=== PATIENT | male | born 1965 | race Caucasian/White ===

== ENCOUNTER 2019-12-07 10:54 | Inpatient (IN) | payer OTHER ==
[~2019-12-07] VITALS: Ht 188 cm; Wt 103.0 kg
[~2019-12-07 10:54] MED LIST: ESOM20CA PO; PAR20T PO
[2019-12-07] MEDS ORDERED: HEPARIN SODIUM (PORCINE) 5000 UNITS/ML 1ML VIAL IV ONE (15:00)
[2019-12-07 15:06] LABS: Basophils # (auto) 0.1 10 ^3/uL (0-0.2); Eosinophils # (auto) 0.9 10 ^3/uL (0-0.8); Lymphocytes # (auto) 2.8 10 ^3/uL (0.4-5.4); Mean Corpuscular Hemoglobin 34.2 pg (28.0-32.0); Nucleated Red Blood Cells % 0.1 %; White Blood Cell 9.6 10^3/uL (4.4-10.8)
[2019-12-07 15:08] LABS: Basophils % (auto) 0.9 % (0.0-2.0); Hematocrit 43.4 % (41.0-53.0); Hemoglobin 14.8 g/dL (13.5-17.5); Lymphocytes % (auto) 29.3 % (10.0-50.0); Mean Corpuscular Volume 100.5 fL (80.0-100.0); Monocytes # (auto) 0.9 10 ^3/uL (0-1.3); Neutrophils % (auto) 51.8 % (37.0-80.0); Platelet Count (auto) 241 10^3/uL (140-450); Red Blood Cells 4.32 10^6/uL (4.5-5.90); Red Cell Distribution Width 13.2 % (11.8-14.3)
[2019-12-07 15:22] LABS: INR 1.06 (0.9-1.15); Partial Thromboplastin Time 30.5 sec (23.64-32.05)
[2019-12-07 15:27] LABS: Albumin 4.1 g/dL (3.4-5.0); BUN/Creatinine Ratio 11.8; Calcium 8.9 mg/dL (8.5-10.1); Potassium 3.8 mmol/L (3.5-5.1)
[2019-12-07 15:29] LABS: Bilirubin, Total 0.3 mg/dL (0.2-1.0)
[2019-12-07] MEDS ORDERED: MORPHINE SULF INJ 2 MG/ML SYRINGE 1ML IV PRN (15:30)
[2019-12-07] MEDS ORDERED: NITROGLYCERIN 0.4 MG SL TAB SL PRN ×2 (15:30→16:00)
[2019-12-07] MEDS ORDERED: HEPARIN IN NS 1000Units/500mL 0 ML ONE (15:41)
[2019-12-07] MEDS ORDERED: IODIXANOL 320MG/ML 100ML BTL IV ONE ×2 (15:41→16:22)
[2019-12-07] MEDS ORDERED: LIDOCAINE 2%HCL (LOCAL ANESTH.) INJ 20ML MDV ONE (15:41)
[2019-12-07] MEDS ORDERED: ANGIOMAX 250 MG VIAL IV ONE ×2 (15:46→16:50)
[2019-12-07] MEDS ORDERED: SODIUM CHL 0.9% 50 ML ONE ×2 (15:46→16:50)
[2019-12-07] MEDS ORDERED: MIDAZOLAM HCL 1MG/1ML-2 ML VIAL ONE ×2 (15:46→16:25)
[2019-12-07] MEDS ORDERED: fentaNYL CITRATE 100 MCG/2 ML VL ONE ×2 (15:46→16:25)
[2019-12-07] MEDS ORDERED: diphenhdrAMINE HCL 50 MG/1 ML VL ONE (15:46)
[2019-12-07] MEDS ORDERED: LORazepam 0.5 MG TAB PO PRN (16:00)
[2019-12-07] MEDS ORDERED: DEXTROSE (50%) 50ML SYRG IV PRN (16:00)
[2019-12-07] MEDS ORDERED: HYDROcodone-ACET 5/325MG TAB PO PRN (16:00)
[2019-12-07] MEDS ORDERED: ONDANSETRON HCL 4 MG/2 ML VIAL IV PRN (16:00)
[2019-12-07] MEDS ORDERED: CLOPIDOGREL BISULFATE 75 MG TAB PO ONE (17:30)
[2019-12-07] MEDS: ACCU-CHEK COMFORT CURVE STRIP VI SCH ×2 (17:39→22:52)
[2019-12-07] MEDS: InsuLIN REG 1unit/0.01ml Soln (100units/ml) SC SCH ×2 (17:39→22:00)
--- NOTE | 2019-12-07 17:51 | NUR ---
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 Pt is a/ox4 with no s/s of distress or SOB. Pt is to lay flat until 1845, pt made aware. Both legs are warm to touch, good blood flow noted and pedal pulses are strong bilaterally. Safety measures maintained with call light within reach, bed in lowest position and side rails up. Will continue to monitor.
[2019-12-07 18:07] VITALS: BP 145/76
[2019-12-07] MEDS ORDERED: CLOP75TA28 PO (18:18)
[2019-12-07] MEDS ORDERED: GABA100C9 PO (18:18)
[2019-12-07] MEDS: SODIUM CHLORIDE 0.9% 1,000 ML IV SCH (18:20)
--- NOTE | 2019-12-07 18:31 | NUR ---
MRSA NARES SENT TO LAB
--- NOTE | 2019-12-07 18:43 | NUR ---
Pt Able to Sit up in Bed Pt able to sit up in bed. Site to L groin is asymptomatic. Blood flow to extremity is noted, pedal pulses strong bilaterally.
--- NOTE | 2019-12-07 19:30 | NUR ---
Opening Shift Note Assumed care of patient, awake and alert. No S/S of distress/SOB or pain. Insructed on POC and to callfor assist PRN, will continue to monitor for changes Q1hr and PRN. Fall and safety precautions in place. Call light within reach.
[2019-12-07 22:00] VITALS: BP 139/75
[2019-12-07] MEDS ORDERED: ATORVASTATIN 20 MG TAB PO SCH (22:00)
[2019-12-07] MEDS: METOPROLOL TARTRATE 25 MG TAB PO SCH (22:39)
--- NOTE | 2019-12-07 23:05 | NUR ---
URINE Urine sample collected per MD order and sent to lab via bullet.
[2019-12-07 23:24] LABS: Urine Bacteria NONE SEEN /hpf (None Seen); Urine Blood TRACE /uL (Negative); Urine Mucus FEW (None Seen); Urine Specific Gravity 1.016 (1.001-1.035); Urine WBC 1 /hpf (0 - 3)
[2019-12-08 05:00] VITALS: BP 155/77
[2019-12-08] MEDS: SODIUM CHLORIDE 0.9% 1,000 ML IV SCH (05:30)
[2019-12-08] MEDS: InsuLIN REG 1unit/0.01ml Soln (100units/ml) SC SCH ×2 (05:49→11:22)
[2019-12-08] MEDS: ACCU-CHEK COMFORT CURVE STRIP VI SCH ×2 (05:49→11:22)
[2019-12-08 05:54] LABS: Basophils # (auto) 0.1 10 ^3/uL (0-0.2); Basophils % (auto) 0.7 % (0.0-2.0); Eosinophils # (auto) 0.7 10 ^3/uL (0-0.8); Eosinophils % (auto) 8.3 % (0.0-7.0); Hematocrit 41.1 % (41.0-53.0); Lymphocytes # (auto) 1.8 10 ^3/uL (0.4-5.4); Lymphocytes % (auto) 20.7 % (10.0-50.0); Mean Corpuscular Hemoglobin 34.1 pg (28.0-32.0); Mean Corpuscular Volume 100.4 fL (80.0-100.0); Monocytes # (auto) 0.8 10 ^3/uL (0-1.3); Monocytes % (auto) 9.4 % (0.0-12.0); Neutrophils # (auto) 5.3 10 ^3/uL (1.6-8.6); Neutrophils % (auto) 60.9 % (37.0-80.0); Platelet Count (auto) 224 10^3/uL (140-450); Red Cell Distribution Width 13.6 % (11.8-14.3); White Blood Cell 8.8 10^3/uL (4.4-10.8)
[2019-12-08 06:11] LABS: Potassium 3.7 mmol/L (3.5-5.1)
[2019-12-08 06:17] LABS: Ferritin 56.6 ng/mL (10-322); Folate (Folic Acid) > 24.00 ng/mL (5.38-24)
[2019-12-08 06:19] LABS: Albumin 3.6 g/dL (3.4-5.0); BUN/Creatinine Ratio 10.7; Bilirubin, Total 0.6 mg/dL (0.2-1.0); Calcium 8.7 mg/dL (8.5-10.1); Magnesium 1.8 mg/dL (1.6-2.6); Phosphorus 3.4 mg/dL (2.5-4.90); Total Protein 7.1 g/dL (6.4-8.2)
[2019-12-08] MEDS ORDERED: LEVOTHYROXINE SODIUM 50 MCG TAB PO SCH (07:00)
--- NOTE | 2019-12-08 07:21 | NUR ---
Opening Note Assumed pt care from NOC RN. Pt is a/ox4 with no s/s of distress or SOB. Pt is currently sitting upright in bed with no complaints at this time. Discussed POC with pt; pt verbalized understanding. Both extremities have good blood flow, pedal pulses are strong. Safety measures maintained with call light within reach, bed in lowest position and side rails up. Will continue to monitor.
[2019-12-08 08:09] VITALS: BP 137/71
[2019-12-08] MEDS: METOPROLOL TARTRATE 25 MG TAB PO SCH (09:07)
[2019-12-08] MEDS ORDERED: ENOXAPARIN SOD 40 MG/0.4 ML SYRINGE SC SCH (10:00)
[2019-12-08] MEDS ORDERED: ASPirin 81 mg TAB PO SCH (10:00)
[2019-12-08] MEDS ORDERED: DOCUSATE SOD 100 MG CAP PO SCH (10:00)
[2019-12-08] MEDS ORDERED: CLOPIDOGREL BISULFATE 75 MG TAB PO SCH (10:00)
[2019-12-08 10:10] LABS: Amphetamine Screen, Urine NEGATIVE (NEGATIVE); Barbiturate Scree,Urine NEGATIVE (NEGATIVE); Benzodiazephine Screen, Urine POSITIVE (NEGATIVE); Cannabinoid Screen, Urine NEGATIVE (NEGATIVE); Cocaine Screen, Urine NEGATIVE (NEGATIVE); Opiate Scree,Urine NEGATIVE (NEGATIVE); Phencyclidine Screen, Urine NEGATIVE (NEGATIVE)
--- NOTE | 2019-12-08 11:50 | NUR ---
Dr Paula Wetzel Called Plans to d/c pt home today. Will send prescription to pt's pharmacy, requests pt follow up with Dr Ceballos after d/c. Will implement and await orders. Will continue to monitor.
[2019-12-08] MEDS ORDERED: CLOP75TA28 PO (11:51)
[2019-12-08] MEDS ORDERED: ASPI81CH43 PO (11:51)
--- NOTE | 2019-12-08 12:17 | NUR ---
Faxed Appointment Information Faxed H&P as well as D/C summary to [facility] at [phone] for f/u appointment.
[2019-12-08 12:18] VITALS: BP 125/58
--- NOTE | 2019-12-08 12:42 | NUR ---
IVs and Tele 29 D/C'ed IVs to pt's R and L AC removed. Catheters were removed fully intact. Sites are asymptomatic. Pressure was applied to each site for 3 minutes with gauze and then wrapped in coban. Pt instructed to keep dressings on for 30 minutes; pt verbalized understanding. Tele 29 removed and sent back to ICU Tele staff made aware. Sent back via [facility] system.
--- NOTE | 2019-12-08 12:48 | NUR ---
Pt D/C'ed off Unit Pt ambulated off unit to main lobby. Pt is a/ox4 with no s/s of distress or SOB. Pt provided all education material, follow up appointment information, and prescription information. All questions were answered and pt took all belongings home. IVS and pt's tele box were d/c'ed prior to d/c.
[2019-12-09 07:06] LABS: RPR Non Reactive (Non Reactive)
== END 2019-12-08 12:47 | disposition home health service (06) | DRG 271 ==
LOC: ER 10:54 → TELE-CENTR 10:55
PROVIDERS: ADMIT Nurse Practitioner Acute Care; ATTEND Internal Medicine
PROC: B41G1ZZ Fluoroscopy of Left Lower Extremity Arteries using Low Osmolar Contrast (ICD-10-PCS; principal; 2019-12-07)
PROC: 04CK3ZZ Extirpation of Matter from Right Femoral Artery, Percutaneous Approach (ICD-10-PCS; 2019-12-07)
PROC: B41F1ZZ Fluoroscopy of Right Lower Extremity Arteries using Low Osmolar Contrast (ICD-10-PCS; 2019-12-07)
PROC: 047K3ZZ Dilation of Right Femoral Artery, Percutaneous Approach (ICD-10-PCS; 2019-12-07)
DX: T82.856A Stenosis of peripheral vascular stent, initial encounter (principal); T82.528A Displacement of other cardiac and vascular devices and implants, initial encounter; I70.291 Other atherosclerosis of native arteries of extremities, right leg; E11.51 Type 2 diabetes mellitus with diabetic peripheral angiopathy without gangrene; I99.8 Other disorder of circulatory system; F17.210 Nicotine dependence, cigarettes, uncomplicated; F32.9 Major depressive disorder, single episode, unspecified; F10.10 Alcohol abuse, uncomplicated; E03.9 Hypothyroidism, unspecified; Y90.9 Presence of alcohol in blood, level not specified; D75.89 Other specified diseases of blood and blood-forming organs; I77.1 Stricture of artery; F41.9 Anxiety disorder, unspecified; D72.1 Eosinophilia; I10 Essential (primary) hypertension; E66.9 Obesity, unspecified; Z95.820 Peripheral vascular angioplasty status with implants and grafts; Z88.1 Allergy status to other antibiotic agents; Y83.8 Other surgical procedures as the cause of abnormal reaction of the patient, or of later complication, without mention of misadventure at the time of the procedure; Y92.098 Other place in other non-institutional residence as the place of occurrence of the external cause; Z90.49 Acquired absence of other specified parts of digestive tract; Z85.828 Personal history of other malignant neoplasm of skin; Z82.49 Family history of ischemic heart disease and other diseases of the circulatory system; Z79.84 Long term (current) use of oral hypoglycemic drugs; E78.5 Hyperlipidemia, unspecified; Z68.28 Body mass index [BMI] 28.0-28.9, adult
CPT/HCPCS: 36415; 71045; 80053; 80307; 81001; 82607; 82728; 82746; 82962; 83735; 83970; 84100; 84443; 85025; 85045; 85610; 85730; 86592; 87081; 93926; 93971; 99152; 99153; G0378; J2250; Q9967

== ENCOUNTER 2020-03-25 08:42 | Emergency (ER) | payer OTHER ==
[~2020-03-25] VITALS: Ht 188 cm; Wt 93.0 kg
[~2020-03-25 08:42] MED LIST changes: +ASPI81CH43 PO; +CLOP75TA28 PO; +GABA100C9 PO
[2020-03-25 08:55] VITALS: BP 117/65
== END 2020-03-25 09:52 | disposition home or self-care (01) ==
LOC: ER 08:42
DX: S50.862A Insect bite (nonvenomous) of left forearm, initial encounter (principal); K21.9 Gastro-esophageal reflux disease without esophagitis; E78.5 Hyperlipidemia, unspecified; I10 Essential (primary) hypertension; F17.210 Nicotine dependence, cigarettes, uncomplicated; W57.XXXA Bitten or stung by nonvenomous insect and other nonvenomous arthropods, initial encounter; Y93.89 Activity, other specified; Y92.89 Other specified places as the place of occurrence of the external cause; Y99.8 Other external cause status

== ENCOUNTER 2023-11-07 08:30 | Emergency (ER) | payer OTHER ==
[~2023-11-07] VITALS: Ht 188 cm; Wt 120.0 kg
[~2023-11-07 08:30] MED LIST changes: +GABA-1308 PO; -GABA100C9 PO
[2023-11-07 09:57] VITALS: PULSE 69; RESP 19; O2SAT 96
[2023-11-07 10:15] LABS: Basophils # (auto) 0 10 ^3/uL (0-0.2); Basophils % (auto) 0.7 % (0.0-2.0); Mean Corpuscular Hgb Conc. 34.1 g/dL (32.0-36.0); Monocytes # (auto) 0.6 10 ^3/uL (0-1.3)
[2023-11-07 10:19] LABS: Eosinophils # (auto) 0.7 10 ^3/uL (0-0.8); Eosinophils % (auto) 10.8 % (0.0-7.0); Hematocrit 40.6 % (41.0-53.0); Hemoglobin 13.9 g/dL (13.5-17.5); Lymphocytes # (auto) 2.1 10 ^3/uL (0.4-5.4); Lymphocytes % (auto) 29.8 % (10.0-50.0); Mean Corpuscular Hemoglobin 34.4 pg (28.0-32.0); Mean Corpuscular Volume 100.6 fL (80.0-100.0); Neutrophils # (auto) 3.4 10 ^3/uL (1.6-8.6); Neutrophils % (auto) 49.7 % (37.0-80.0); Red Blood Cells 4.04 10^6/uL (4.5-5.90); Red Cell Distribution Width 13.4 % (11.8-14.3); White Blood Cell 6.9 10^3/uL (4.4-10.8)
[2023-11-07 10:40] LABS: Alanine Aminotransferase 15 U/L (7-40); Albumin 4.6 g/dL (3.2-4.8); Alkaline Phosphatase 69 U/L (46-116); Anion Gap 6 (5-15); Aspartate Aminotransferase 13 U/L (13-40); BUN/Creatinine Ratio 13.5 (10.0-20.0); Blood Urea Nitrogen 12 mg/dL (9-23); Calcium 9.4 mg/dL (8.7-10.4); Carbon Dioxide 27 mmol/L (20-30); Chloride 106 mmol/L (98-107); Glucose 148 mg/dL (74-106); Lipase 28 U/L (12-53); Potassium 4.3 mmol/L (3.5-5.1); Sodium 139 mmol/L (136-145)
[2023-11-07 10:41] LABS: Bilirubin, Total 0.4 mg/dL (0.2-1.0); Total Protein 6.8 g/dL (5.7-8.2)
[2023-11-07] MEDS: IOHEXOL 350 MG/ML 100ML IJ ONE (14:19)
[2023-11-07 17:49] VITALS: BP 154/64; PULSE 67; RESP 14; TEMP 97.9; O2SAT 96
== END 2023-11-07 18:13 | disposition short-term general hospital (02) ==
LOC: ER 08:30 → EDBD 08:30 → ER 18:13
DX: G45.0 Vertebro-basilar artery syndrome (principal); I10 Essential (primary) hypertension; F41.9 Anxiety disorder, unspecified; K21.9 Gastro-esophageal reflux disease without esophagitis; E78.5 Hyperlipidemia, unspecified; F10.90 Alcohol use, unspecified, uncomplicated; Z98.890 Other specified postprocedural states; Z85.9 Personal history of malignant neoplasm, unspecified; Z87.891 Personal history of nicotine dependence; Y90.0 Blood alcohol level of less than 20 mg/100 ml
CPT/HCPCS: 36415; 70450; 70496; 71045; 80053; 83690; 84484; 85025; 93005; 99285; Q9967

== ENCOUNTER 2024-09-26 14:21 | Inpatient (IN) | payer OTHER ==
[~2024-09-26] VITALS: Ht 188 cm; Wt 91.6 kg
[2024-09-26] MEDS: HYDROcodone-ACET 5/325MG TAB PO ONE (14:30)
[2024-09-26 14:41] LABS: Basophils # (auto) 0.1 10 ^3/uL (0-0.2); Basophils % (auto) 1.1 % (0.0-2.0); Eosinophils # (auto) 0.9 10 ^3/uL (0-0.8); Eosinophils % (auto) 11.5 % (0.0-7.0); Hematocrit 42.3 % (41.0-53.0); Hemoglobin 14.7 g/dL (13.5-17.5); Lymphocytes # (auto) 2.6 10 ^3/uL (0.4-5.4); Lymphocytes % (auto) 32.4 % (10.0-50.0); Mean Corpuscular Hemoglobin 34.6 pg (28.0-32.0); Mean Corpuscular Hgb Conc. 34.7 g/dL (32.0-36.0); Mean Corpuscular Volume 99.6 fL (80.0-100.0); Monocytes # (auto) 0.8 10 ^3/uL (0-1.3); Monocytes % (auto) 9.3 % (0.0-12.0); Neutrophils # (auto) 3.7 10 ^3/uL (1.6-8.6); Neutrophils % (auto) 45.7 % (37.0-80.0); Nucleated Red Blood Cells % 0.1 %; Platelet Count (auto) 270 10^3/uL (140-450); Red Blood Cells 4.25 10^6/uL (4.5-5.90); Red Cell Distribution Width 13.2 % (11.8-14.3); White Blood Cell 8.1 10^3/uL (4.4-10.8)
--- NOTE | 2024-09-26 14:42 | ED.PDOC ---
History of Present Illness HPI Comments 59M presents to the Er w/ prior Hx of HTN, TIA, Mitral Valve Prolapse, and Bilateral leg splints which all may be associated to the c/c of LE pain. Pt reports on having right leg pain for the past 2 weeks w/ a pressure ulcer in the web space of the 2nd and 3rd digit. PMHx of Anxiety, GERD, High Lipids, and Skin Cancer. SHx of Appendectomy. Social Hx of tobacco use, but denies alcohol and substance use. Denies chills, fever, N/V/D, SOB, CP or other associated symptom's, modifiers, or recent injuries or sick contact at this time. Chief Complaint: Lower Extremity Time Seen by MD: 14:30 Primary Care Provider: BAUDILIO Willingham Notes: Nurses Notes, Medications, Allergies Allergies: Coded Allergies: Cephalexin (Verified Allergy, Severe, 06/29/13) Home Meds Active Scripts Aspirin (Asa) 81 Mg Ch, 81 MG PO DAILY, #30 TAB.CHEW Prov:BETINA SCHULZ MD 12/08/19 Clopidogrel Bisulfate (Plavix) 75 Mg Tab, 1 TAB PO DAILY, #30 TAB 1 Refill Prov:BETINA SCHULZ MD 12/08/19 Reported Medications Gabapentin (Gabapentin) 100 Mg Cap, 100 MG PO BID for 30 Days, MG 12/07/19 Paroxetine (PAXIL TABLET) 20 Mg Tb, 40 MG PO DAILY, #30 TAB 1 Refill 06/11/16 Esomeprazole Magnesium Trihydr (Nexium) 20 Mg Cap, 40 MG PO DAILY, #30 TAB 2 Refills 06/11/16 Information Source: Patient Mode of Arrival: Ambulatory Severity: Moderate Timing: Weeks Duration: Since onset Prehospital treatment: None Past Medical History PAST MEDICAL HISTORY: Anxiety, Cancer (Skin), GERD, High Lipids, HTN, TIA Past Medical History (Other): mitral Valve Prolapse Surgical History: Appendectomy Surgical History (Other): Stent-Bilateral legs Family History Family History: Reviewed,noncontributory to illness, Unknown Social History Smoker: Greater Than 1 Pack/Day Alcohol: Denies ETOH Use Drugs: Denies Drug Use Lives In: Home Constitutional: reports: others (Right Foot ulcer pain); denies: chills, diaphoresis, fatigue, fever, malaise, sweats, weakness EENTM: denies: blurred vision, double vision, ear bleeding, ear discharge, ear drainage, ear pain, ear ringing, eye pain, eye redness, hearing loss, mouth pain, mouth swelling, nasal discharge, nose bleeding, nose congestion, nose pain, photophobia, tearing, throat pain, throat swelling, voice changes, others Respiratory: denies: cough, hemoptysis, orthopnea, SOB at rest, shortness of breath, SOB with excertion, stridor, wheezing, others Cardiovascular: denies: chest pain, dizzy spells, diaphoresis, Dyspnea on exertion, edema, irregular heart beat, left arm pain, lightheadedness, palpitations, PND, syncope, others Gastrointestinal: denies: abdomen distended, abdominal pain, blood streaked bowels, constipated, diarrhea, dysphagia, difficulty swallowing, hematemesis, melena, nausea, poor appetite, poor fluid intake, rectal bleeding, rectal pain, vomiting, others Genitourinary: denies: burning, dysuria, flank pain, frequency, hematuria, incontinence, penile discharge, penile sore, pain, testicle pain, testicle swelling, urgency, others Neurological: denies: dizziness, fainting, headache, left sided numbness, left sided weakness, numbness, paresthesia, pre-existing deficit, right sided num bness, right sided weakness, seizure, speech problems, tingling, tremors, weakness, others Musculoskeletal: denies: back pain, gout, joint pain, joint swelling, muscle pain, muscle stiffness, neck pain, others Integumetry: denies: bruises, change in color, change in hair/nails, dryness, laceration, lesions, lumps, rash, wounds, others Allergic/Immunocompromised: denies: Difficulty Healing, Frequent Infections, Hives, Itching, others Hematologic/Lymphatic: denies: anemia, blood clots, easy bleeding, easy bruising, swollen glands, others Endocrine: denies: excessive hunger, excessive sweating, excessive thirst, excessive urination, flushing, intolerance to cold, intolerance to heat, unexplained weight gain, unexplained weight loss, others Psychiatric: denies: anxiety, bipolar disorder, depression, hopeless, panic disorder, schizophrenia, sleepless, suicidal, others All Other Systems: Reviewed and Negative Physical Exam Exam Comments Right foot web space 2nd and 3rd digit pressure ulcer, barely palpable, skin is pink and cool to touch General Appearance: No Apparent Distress, Normal HEENT: Normal ENT Inspection, Pharynx Normal, TMs Normal Neck: Full Range of Motion, Non-Tender, Normal, Normal Inspection Respiratory: Chest Non-Tender, Lungs Clear, No Accessory Muscle Use, No Respiratory Distress, Normal Breath Sounds Cardiovascular: No Edema, No JVD, No Murmur, No Gallop, Normal Peripheral Pulses, Regular Rate/Rhythm Breast Exam: Deferred Gastrointestinal: No Organomegaly, Non Tender, No Pulsatile Mass, Normal Bowel Sounds, Soft Genitalia: Deferred Pelvic: Deferred Rectal: Deferred Extremities: No calf tenderness, Normal capillary refill, Normal inspection, Normal range of motion, Non-tender, No pedal edema Musculoskeletal : Apperance: Normal Neurologic: Alert, industrial sewer II-XII nml as Tested, No Motor Deficits, Normal Affect, Normal Mood, No Sensory Deficits Cerebellar Function: Normal Reflexes: Normal Skin: Dry, Normal Color, Warm Lymphatic: No Adenopathy Was a procedure done? Was a procedure done?: No Differential Dx Considerations may include: ischemic limb, vascular claudication, PAD, spinal claudication, gastrocnemius cramping, sciatica X-Ray, Labs, Meds, VS Vital Signs Date Time Temp Pulse Resp B/P (MAP) Pulse Ox O2 Delivery O2 Flow Rate FiO2 09/26/24 14:34 70 09/26/24 14:29 98.0 81 16 157/64 (95) 97 Lab Test 09/26/24 14:33 Range/Units White Blood Count 8.1 4.4-10.8 10^3/uL Red Blood Count 4.25 L 4.5-5.90 10^6/uL Hemoglobin 14.7 13.5-17.5 g/dL Hematocrit 42.3 41.0-53.0 % Mean Corpuscular Volume 99.6 80.0-100.0 fL Mean Corpuscular Hemoglobin 34.6 H 28.0-32.0 pg Mean Corpuscular Hemoglobin Concent 34.7 32.0-36.0 g/dL Red Cell Distribution Width 13.2 11.8-14.3 % Platelet Count 270 140-450 10^3/uL Mean Platelet Volume 6.8 L 6.9-10.8 fL Neutrophils (%) (Auto) 45.7 37.0-80.0 % Lymphocytes (%) (Auto) 32.4 10.0-50.0 % Monocytes (%) (Auto) 9.3 0.0-12.0 % Eosinophils (%) (Auto) 11.5 H 0.0-7.0 % Basophils (%) (Auto) 1.1 0.0-2.0 % Neutrophils # (Auto) 3.7 1.6-8.6 10 ^3/uL Lymphocytes # (Auto) 2.6 0.4-5.4 10 ^3/uL Monocytes # (Auto) 0.8 0-1.3 10 ^3/uL Eosinophils # (Auto) 0.9 H 0-0.8 10 ^3/uL Basophils # (Auto) 0.1 0-0.2 10 ^3/uL Nucleated Red Blood Cells 0.1 % Sodium Level 138 136-145 mmol/L Potassium Level 4.3 3.5-5.1 mmol/L Chloride Level 106 98-107 mmol/L Carbon Dioxide Level 28 20-31 mmol/L Anion Gap 4 L 5-15 Blood Urea Nitrogen 12 9-23 mg/dL Creatinine 0.90 0.700-1.30 mg/dL Glomerular Filtration Rate Calc 99 >90 mL/min BUN/Creatinine Ratio 13.3 10.0-20.0 Serum Glucose 114 H 74-106 mg/dL Calcium Level 10.1 8.7-10.4 mg/dL Time of 1ST Reevaluation: 15:00 Reevaluation 1ST: Unchanged Patient Education/Counseling: Diagnosis, Treatment, Prognosis, Need For Follow Up Family Education/Counseling: Diagnosis, Treatment, Prognosis, Need For Follow Up, No Family Present Additional Information - I reviewed the following notes from patient's past medical encounters:11/07/23 - The following tests were ordered, and results were reviewed by me: US, LAB PHA - I reviewed and agreed with the following test results read by other provider: US - I discussed treatments and results with medical personnel and: (consultants, family- ) pt has severe arterial stenosis of the right leg. he is an active smoker. i have stressed to him the importance of smoking cessation. at this time, he does not have ischemia, but the claudication is severe and activity limiting. i will have pt admitted for vascular evaluation Departure 1 Departure Time of Disposition: 16:42 Impression: Primary Impression: PAD (peripheral artery disease) Additional Impressions: Smoking addiction Claudication in peripheral vascular disease Disposition: ADMITTED INPATIENT Admit to: Med Surg Condition: Serious Discharged With: Self, Relative Critical Care Note Critical Care Time?: Yes (55 min-critical care time only) Critical care comment: due to concerns for deterioration of patient's condition, the care required my highest level of attention and readiness. i assessed the patient's condition, revieweed relavent documents, communicated with medical personnel, ordered the proper tests and treatments, reassed fro results and response to treatments, spoke to family and consultants and formulated a plan of care Stability Stability form required: No I personally scribed for PACO DIALLO MD ([email or web address]) on 09/26/24 at 14:42. Electronically submitted by Isidoro Mcnulty ([email or web address]). PACO DIALLO MD Sep 26, 2024 14:42
[2024-09-26 14:55] LABS: Chloride 106 mmol/L (98-107); Potassium 4.3 mmol/L (3.5-5.1); Sodium 138 mmol/L (136-145)
[2024-09-26 14:56] LABS: Anion Gap 4 (5-15); Calcium 10.1 mg/dL (8.7-10.4); Carbon Dioxide 28 mmol/L (20-31)
[2024-09-26 15:01] LABS: BUN/Creatinine Ratio 13.3 (10.0-20.0); Blood Urea Nitrogen 12 mg/dL (9-23)
[2024-09-26 15:02] LABS: Glucose 114 mg/dL (74-106)
--- NOTE | 2024-09-26 16:12 | DVH ---
RIGHT Lower Extremity Arterial Duplex Clinical History: claudication Comparison: None Technique: Duplex Doppler evaluation including color Doppler and spectral/pulsed waveform analysis of the RIGHT lower extremity arteries was performed. Findings: RIGHT: Peak systolic velocities are as follows: AIRCRAFT DE ICER INSTALLER 230 cm/s TRIPHASIC WAVEFORM Deep femoral 232 cm/s TRIPHASIC WAVEFORM SFA proximal 146 cm/s TRIPHASIC WAVEFORM SFA mid-portion 40 cm/s TRIPHASIC WAVEFORM SFA distal 106 cm/s TRIPHASIC WAVEFORM Popliteal 33 cm/s Dorsalis pedis 0 cm/s The waveforms are TRIPHASIC WAVEFORMS MONOPHASIC WAVEFORMS BELOW THE KNEE.. IMPRESSION: 1. RIGHT COMMON FEMORAL AND DEEP FEMORAL ARTERIES SUGGESTED 50-75% STENOSIS. 2. Nonvisualized right dorsalis pedis 3. Monophasic waveform in the right popliteal and posterior tibial arteries. REFERENCE VALUES, [facility]) vascular Imaging Lab Criteria: Peak systolic velocity ranges (in cm/sec) are as follows: <150 cm/s - <20 % stenosis 150-200 cm/s - 20-49% stenosis 200-300 cm/s - 50-75% stenosis >300 cm/s -> 75% stenosis
[2024-09-26] MEDS: ENOXAPARIN SOD 120 MG/0.8 ML SYRINGE SC ONE (17:19)
[2024-09-26 17:47] VITALS: PULSE 74; RESP 16; O2SAT 96
[2024-09-26] MEDS ORDERED: DOCUSATE SOD 100 MG CAP PO PRN (21:00)
[2024-09-26] MEDS ORDERED: ACETAMINOPHEN 325 MG TAB PO PRN (21:00)
[2024-09-26] MEDS ORDERED: MORPHINE SULFATE INJ 2 MG/ml SYRG IV PRN ×2 (21:00→21:30)
[2024-09-26] MEDS ORDERED: hydrALAZINE HCL 20 MG/ML VL IV PRN (21:00)
[2024-09-26] MEDS ORDERED: ONDANSETRON HCL 4 MG/2 ML VIAL IV PRN (21:00)
[2024-09-26 21:25] VITALS: PULSE 82; RESP 18; O2SAT 94
--- NOTE | 2024-09-26 21:29 | DVHHP2 ---
History of Present Illness Reason for Visit: Peripheral artery disease History of Present Illness The patient is a 59-year-old male with multiple past medical history including skin cancer, anxiety, GERD, TIA, and hypertension presented to [facility] ED with complaint of left lower extremity pain. Patient reports on having right leg pain for the past 2 weeks with a pressure ulcer in the web space of the 2nd and 3rd digit. Patient was seen and evaluated in the ED, laboratory data shows WBC 9.1, platelets 270, sodium 138, potassium 4.3, BUN 12, creatinine 0.90, GFR 99, glucose 114, calcium 10.1, blood pressure 139/69, heart rate 74, temperature 98.2 F, O2 saturation 96% on room air. Extremity arterial l study revealing right common femoral and deep femoral arteries suggested 50- 75% stenosis. Patient was started on Lovenox, please see medication orders section in the computer. On my assessment, patient denies chest pain, no headache, no dizziness, no shortness of breaths, no nausea, no vomiting, no fever, no chills. Patient was admitted for further evaluation and medical management. Past Medical History Anxiety, Cancer (Skin), GERD, High Lipids, HTN, TIA, Mitral Valve Prolapse Past Surgical History Appendectomy, Stent-Bilateral legs Family History Reviewed, noncontributory to the management of this case. Past Social History The patient lives at home, denies smoking, alcohol or illicit drugs abuse. Review of Systems Constitutional: No: Fever, Chills, Sweats, Weakness, Malaise, Other Eyes: No: Pain, Vision change, Conjunctivae inflammation, Eyelid inflammation, Other, Redness ENT: No: Ear pain, Ear discharge, Nose pain, Nose discharge, Nose congestion, Mouth pain, Mouth swelling, Throat pain, Throat swelling, Other Respiratory: No: Cough, Dry, Shortness of breath, SOB with excertion, Wheezing, Hemoptysis, Pleuritic Pain, Sputum, Wheezing, Other Cardiovascular: No: Chest Pain, Palpitations, Orthopnea, Paroxysmal Noc. Dyspnea, Edema, Lt Headedness, Other Gastrointestinal: No: Nausea, Vomiting, Abdominal Pain, Diarrhea, Constipation, Melena, Hematochezia, Other Genitourinary: No Dysuria, No Frequency, No Incontinence, No Hematuria, No Retention, No Other Musculoskeletal: other (Right foot pain); No: neck pain, shoulder pain, arm pain, back pain, hand pain, leg pain, foot pain Skin: Rash (Right Foot ulcer pain); No: Lesions, Jaundice, Bruising, Other Neurological: No: Weakness, Numbness, Incoordination, Change in speech, Confusion, Seizures, Other Allergies: Coded Allergies: Cephalexin (Verified Allergy, Severe, 06/29/13) Medications Current Medications Medications Dose Ordered Sig/Rosalind Route Start Time Stop Time Status Last Admin Dose Admin Gabapentin 100 mg BID PO 09/26/24 22:00 Hydralazine HCl 10 mg Q6HP PRN IV 09/26/24 21:00 Amlodipine Besylate 5 mg DAILY PO 09/27/24 10:00 Enoxaparin Sodium 100 mg Q12H SC 09/27/24 05:00 Sodium Chloride 1,000 ml @ 60 mls/hr [id number] IV 09/26/24 21:00 Acetaminophen/ Hydrocodone Bitart 1 tab Q4HP PRN PO 09/26/24 21:00 Ondansetron HCl 4 mg Q4HP PRN IV 09/26/24 21:00 Docusate Sodium 100 mg BIDPRN PRN PO 09/26/24 21:00 Acetaminophen 650 mg Q6HP PRN PO 09/26/24 21:00 Morphine Sulfate 2 mg Q4HPRN PRN IV 09/26/24 21:00 Metoprolol Tartrate 25 mg BID PO 09/26/24 22:00 Exam Vital Signs Vital Signs Date Time Temp Pulse Resp B/P (MAP) Pulse Ox O2 Delivery O2 Flow Rate FiO2 09/26/24 17:47 74 16 96 Room Air* 0 21 09/26/24 17:21 98.2 139/69 (92) 98.2 General Appearance: Alert, Oriented X3, Cooperative, No acute distress HEENT: Atraumatic, PERRLA, EOMI, Mucous membr. moist/pink Respiratory: Clear to auscultation, Normal air movement, Other Cardiovascular: Regular rate, Normal S1, Normal S2, No murmurs Abdominal: Normal bowel sounds, Soft, No tenderness, No hepatospenomegaly, No masses Extremities: No clubbing, No cyanosis, No edema, Normal pulses, Other (Right foot tenderness) Skin: No rashes, No breakdown, No significant lesion Neuro: Normal gait, Normal speech, Strength at 5/5 X4 ext, Normal tone, Sensation intact, Cranial nerves 3-12 NL, Reflexes 2+ Psych/Mental Status: Mental status NL, Mood NL Labs/Xrays Labs Test 09/26/24 14:33 Range/Units White Blood Count 8.1 4.4-10.8 10^3/uL Red Blood Count 4.25 L 4.5-5.90 10^6/uL Hemoglobin 14.7 13.5-17.5 g/dL Hematocrit 42.3 41.0-53.0 % Mean Corpuscular Volume 99.6 80.0-100.0 fL Mean Corpuscular Hemoglobin 34.6 H 28.0-32.0 pg Mean Corpuscular Hemoglobin Concent 34.7 32.0-36.0 g/dL Red Cell Distribution Width 13.2 11.8-14.3 % Platelet Count 270 140-450 10^3/uL Mean Platelet Volume 6.8 L 6.9-10.8 fL Neutrophils (%) (Auto) 45.7 37.0-80.0 % Lymphocytes (%) (Auto) 32.4 10.0-50.0 % Monocytes (%) (Auto) 9.3 0.0-12.0 % Eosinophils (%) (Auto) 11.5 H 0.0-7.0 % Basophils (%) (Auto) 1.1 0.0-2.0 % Neutrophils # (Auto) 3.7 1.6-8.6 10 ^3/uL Lymphocytes # (Auto) 2.6 0.4-5.4 10 ^3/uL Monocytes # (Auto) 0.8 0-1.3 10 ^3/uL Eosinophils # (Auto) 0.9 H 0-0.8 10 ^3/uL Basophils # (Auto) 0.1 0-0.2 10 ^3/uL Nucleated Red Blood Cells 0.1 % Sodium Level 138 136-145 mmol/L Potassium Level 4.3 3.5-5.1 mmol/L Chloride Level 106 98-107 mmol/L Carbon Dioxide Level 28 20-31 mmol/L Anion Gap 4 L 5-15 Blood Urea Nitrogen 12 9-23 mg/dL Creatinine 0.90 0.700-1.30 mg/dL Glomerular Filtration Rate Calc 99 >90 mL/min BUN/Creatinine Ratio 13.3 10.0-20.0 Serum Glucose 114 H 74-106 mg/dL Calcium Level 10.1 8.7-10.4 mg/dL PATIENT: SEDRICK DICKEY ACCT: [id number] UNIT: [id number] : 1965 LOC: ER ROOM / BED: / AGE / SEX: 59 / M ADM STATUS: REG ER SERVICE 1425 ORDERING PHYSICIAN: PACO DIALLO MD PROCEDURE(s): RLEAD - Rt Low Ext Art Duplex REASON: claudication ORDER NUMBER(s): [id number], ACCESSION NUMBER(s): [id number] RIGHT Lower Extremity Arterial Duplex Clinical History: claudication Comparison: None Technique: Duplex Doppler evaluation including color Doppler and spectral/pulsed waveform a nalysis of the RIGHT lower extremity arteries was performed. Findings: RIGHT: Peak systolic velocities are as follows: OUTSIDE MACHINIST 230 cm/s TRIPHASIC WAVEFORM Deep femoral 232 cm/s TRIPHASIC WAVEFORM SFA proximal 146 cm/s TRIPHASIC WAVEFORM SFA mid-portion 40 cm/s TRIPHASIC WAVEFORM SFA distal 106 cm/s TRIPHASIC WAVEFORM Popliteal 33 cm/s Dorsalis pedis 0 cm/s The waveforms are TRIPHASIC WAVEFORMS MONOPHASIC WAVEFORMS BELOW THE KNEE.. IMPRESSION: 1. RIGHT COMMON FEMORAL AND DEEP FEMORAL ARTERIES SUGGESTED 50-75% STENOSIS. 2. Nonvisualized right dorsalis pedis 3. Monophasic waveform in the right popliteal and posterior tibial arteries. REFERENCE VALUES, [facility]) vascular Imaging Lab Criteria: Peak systolic velocity ranges (in cm/sec) are as follows: <150 cm/s - <20 % stenosis 150-200 cm/s - 20-49% stenosis 200-300 cm/s - 50-75% stenosis >300 cm/s -> 75% stenosis Assessment/Plan Assessment/Plan PAD (peripheral artery disease) Smoking addiction Claudication in peripheral vascular disease Plan 1. Admit to telemetry unit 2. Breathing treatment 3. Pain control management 4. Management of fluids and electrolytes 5. Consultation for vascular surgery 6. Diagnostic tests extremity arterial study 7. DVT prophylaxis-on Lovenox 8. Repeat labs CBC, CMP in a.m. 9. Continue with current medical management 10. Treatment plan discussed with patient and RN. Patient verbalized understanding. Plan discussed with: Patient, Other (RN) My Orders Orders - OKPAN,CHUY O DNP Procedure Category Date Status Time Gabapentin Capsule PHA 09/26/24 In Process (Neurontin Capsule) 22:00 Hydralazine Injection PHA 09/26/24 In Process (Apresoline Inject 21:00 Amlodipine Tablet PHA 09/27/24 In Process (Norvasc Tablet) 10:00 Allergies TA 09/26/24 In Process 20:52 Code Status CODE 09/26/24 Transmitted 20:52 Sodium Chloride 0.9% PHA 09/26/24 In Process 21:00 Oxygen Per Hour RT 09/26/24 Transmitted 20:52 Hydrocodone-Acet PHA 09/26/24 In Process 5/325mg Tab (Lamont 21:00 Ondansetron Hcl PHA 09/26/24 In Process (Zofran) 21:00 Docusate Sodium PHA 09/26/24 In Process Capsule (Colace 21:00 Complete Blood Count LAB 09/27/24 Verified 04:00 Comprehensive LAB 09/27/24 Verified Metabolic Panel 04:00 Cardiac DIET 09/27/24 Transmitted Diet-2gna,Lofat,Lochol Breakfast Condition: Serious TA 09/26/24 In Process 20:52 Acetaminophen Tablet PHA 09/26/24 In Process (Tylenol Tablet) 21:00 Bedrest With Bathroom TA 09/26/24 In Process Privileg 20:52 Morphine Sulfate PHA 09/26/24 In Process Injection 21:00 Metoprolol Tartrate PHA 09/26/24 In Process Tablet (Lopressor Ta 22:00 Enoxaparin Sodium PHA 09/27/24 In Process (Lovenox) 05:00 Admit ADMIT 09/26/24 Verified 21:26 Nitroglycerin PHA 09/26/24 Verified Sublingual (Ntrostat 21:30 Morphine Sulfate PHA 09/26/24 Verified Injection 21:30 Notify Of Changes TA 09/26/24 Verified From Base 21:26 Electronics Engineer For TA 09/26/24 Verified 24 Hours 21:26 Emergency Dysrhythmia TA 09/26/24 Verified Protocol 21:26 Rhythm Strips Once TA 09/26/24 Verified Every Shift 21:26 Oxygen By Nasal RT 09/26/24 Verified Cannula 21:26 Problem List: (1) PAD (peripheral artery disease) (2) Smoking addiction (3) Claudication in peripheral vascular disease Date of Service: Sep 26, 2024 Billing Provider: CHUY BLAND DNP Common Visit Codes: [id number] INP/OBS CARE (HIGH) CUHY BLAND DNP Sep 26, 2024 21:29
[2024-09-26] MEDS ORDERED: NITROGLYCERIN 0.4 MG SL TAB SL PRN (21:30)
[2024-09-26] MEDS: METOPROLOL TARTRATE 25 MG TAB PO SCH (21:49)
[2024-09-26] MEDS: HYDROcodone-ACET 5/325MG TAB PO PRN (21:50)
[2024-09-26] MEDS: GABAPENTIN 100 MG CAP PO SCH (21:50)
[2024-09-26] MEDS: SODIUM CHLORIDE 0.9% 1,000 ML IV SCH (21:53)
[2024-09-26] MEDS ORDERED: GABAPENTIN 100 MG CAP PO SCH (22:00)
[2024-09-27 04:18] LABS: Eosinophils # (auto) 0.8 10 ^3/uL (0-0.8); Hemoglobin 13.8 g/dL (13.5-17.5); Lymphocytes # (auto) 2.5 10 ^3/uL (0.4-5.4); Monocytes # (auto) 0.7 10 ^3/uL (0-1.3); Nucleated Red Blood Cells % 0.1 %
[2024-09-27 04:22] LABS: Basophils # (auto) 0.1 10 ^3/uL (0-0.2); Basophils % (auto) 0.7 % (0.0-2.0); Eosinophils % (auto) 9.9 % (0.0-7.0); Hematocrit 39.5 % (41.0-53.0); Lymphocytes % (auto) 32.7 % (10.0-50.0); Mean Corpuscular Hemoglobin 34.3 pg (28.0-32.0); Mean Corpuscular Hgb Conc. 34.9 g/dL (32.0-36.0); Mean Corpuscular Volume 98.4 fL (80.0-100.0); Monocytes % (auto) 9.6 % (0.0-12.0); Neutrophils # (auto) 3.6 10 ^3/uL (1.6-8.6); Neutrophils % (auto) 47.1 % (37.0-80.0); Platelet Count (auto) 245 10^3/uL (140-450); Red Blood Cells 4.02 10^6/uL (4.5-5.90); Red Cell Distribution Width 13.3 % (11.8-14.3); White Blood Cell 7.7 10^3/uL (4.4-10.8)
[2024-09-27 04:35] LABS: Alanine Aminotransferase 22 U/L (7-40); Alkaline Phosphatase 74 U/L (46-116); Aspartate Aminotransferase 15 U/L (13-40); Calcium 9.9 mg/dL (8.7-10.4); Carbon Dioxide 26 mmol/L (20-31)
[2024-09-27 04:36] LABS: Anion Gap 5 (5-15); BUN/Creatinine Ratio 16.5 (10.0-20.0); Blood Urea Nitrogen 16 mg/dL (9-23); Glucose 101 mg/dL (74-106); Sodium 139 mmol/L (136-145)
[2024-09-27 04:37] LABS: Albumin 4.8 g/dL (3.2-4.8); Chloride 108 mmol/L (98-107)
[2024-09-27 04:43] LABS: Bilirubin, Total 0.2 mg/dL (0.2-1.0)
[2024-09-27] MEDS: ENOXAPARIN SOD 100 MG/1 ML SYRINGE SC SCH (05:20)
--- NOTE | 2024-09-27 07:22 | ECG ---
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
[2024-09-27 07:59] VITALS: PULSE 64; RESP 11; O2SAT 97
[2024-09-27] MEDS: amLODIPine BESYLATE 5 MG TAB PO SCH (11:14)
--- NOTE | 2024-09-27 13:20 | DVHPN2 ---
Assessment/Plan Assessment/Plan Progress note 59 yo M with TIA, HTN, MVP smoker, admitted for R leg pain and ulcer Physical exam Alert oriented x3 able to ambulate clear breath sounds s1 s2 rrr abdomen soft LE edema with foot ulcer, dim pulse labs ekg imaging reviewed Foot ulcer likely PAD HTN Hx of TIA smoker vascular consult asa lipitor smoking cessation, NRT resume home meds wound consult send lipid a1c diet cardiac dvt ppx hold possible procedure Plan discussed with: Patient My Orders Orders - VALENTINA CALIXTO MD Procedure Category Date Status Time Aspirin Enteric PHA 09/28/24 Logged Coated Tablet 10:00 Atorvastatin (Lipitor) PHA 09/27/24 Verified 22:00 Lipid Panel LAB 09/27/24 Verified 13:15 Hemoglobin A1c LAB 09/27/24 Verified 13:15 Basic Metabolic Panel LAB 09/28/24 Verified 04:00 Complete Blood Count LAB 09/28/24 Verified 04:00 B-Type Natriuretic LAB 09/27/24 Verified Peptide 13:15 Date of Service: Sep 27, 2024 Billing Provider: VALENTINA CALIXTO MD Common Visit Codes: [id number] INP/OBS CARE(HIGH) VALENTINA CALIXTO MD Sep 27, 2024 13:20
[2024-09-27 13:37] LABS: LDL Cholesterol 83 mg/dL (< 100)
[2024-09-27 13:38] LABS: Cholesterol 145 mg/dL (< 200); HDL Cholesterol 47 mg/dL (40-59)
[2024-09-27 13:44] LABS: Triglycerides 153 mg/dL (< 150)
[2024-09-27 19:30] VITALS: O2SAT 97
[2024-09-28] MEDS: ATORVASTATIN 20 MG TAB PO SCH (00:10)
[2024-09-28 06:52] LABS: Eosinophils # (auto) 0.7 10 ^3/uL (0-0.8); Platelet Count (auto) 224 10^3/uL (140-450); White Blood Cell 6.5 10^3/uL (4.4-10.8)
[2024-09-28 06:57] LABS: Basophils # (auto) 0.1 10 ^3/uL (0-0.2); Basophils % (auto) 0.9 % (0.0-2.0); Eosinophils % (auto) 10.4 % (0.0-7.0); Hematocrit 38.6 % (41.0-53.0); Hemoglobin 13.4 g/dL (13.5-17.5); Mean Corpuscular Hemoglobin 34.5 pg (28.0-32.0); Mean Corpuscular Hgb Conc. 34.8 g/dL (32.0-36.0); Monocytes # (auto) 0.7 10 ^3/uL (0-1.3); Monocytes % (auto) 10.5 % (0.0-12.0); Neutrophils # (auto) 3.2 10 ^3/uL (1.6-8.6); Neutrophils % (auto) 48.2 % (37.0-80.0); Red Cell Distribution Width 13.1 % (11.8-14.3)
[2024-09-28 07:04] LABS: Anion Gap 6 (5-15); Carbon Dioxide 29 mmol/L (20-31); Chloride 105 mmol/L (98-107); Sodium 140 mmol/L (136-145)
[2024-09-28 07:05] LABS: Calcium 9.9 mg/dL (8.7-10.4)
[2024-09-28 07:10] LABS: BUN/Creatinine Ratio 13.1 (10.0-20.0); Blood Urea Nitrogen 11 mg/dL (9-23); Glucose 122 mg/dL (74-106)
[2024-09-28 08:35] VITALS: PULSE 57; RESP 13; O2SAT 93
[2024-09-28] MEDS: ASPirin-EC 81 mg tab PO SCH (10:45)
[2024-09-28 13:00] VITALS: BP 133/59; PULSE 55; PULSE 56; RESP 16; RESP 18; TEMP 97.3; O2SAT 97
[2024-09-28] MEDS ORDERED: ATOR-47 (13:31)
[2024-09-28] MEDS ORDERED: GABA-1250 (13:31)
[2024-09-28] MEDS ORDERED: LISI20TA56 (13:31)
[2024-09-28] MEDS ORDERED: CLOP75TA70 PO (13:31)
--- NOTE | 2024-09-28 14:08 | DVHPN2 ---
Assessment/Plan Assessment/Plan Progress note 59 yo M with TIA, HTN, MVP smoker, PAD s/p fem stents, admitted for R leg pain and ulcer seen during rounds, wound clean. pending vascular Physical exam Alert oriented x3 able to ambulate clear breath sounds s1 s2 rrr abdomen soft LE edema with foot ulcer, dim pulse labs ekg imaging reviewed PAD with foot ulcer s/p fem stents HTN Hx of TIA smoker vascular consult asa lipitor smoking cessation, NRT resume home meds wound consult send lipid a1c mycostatin powder on feet add cilostazol hold plavix for procedure resume home meds cta with runoff diet cardiac dvt ppx hold possible procedure discussed smoking cessation 10 minutes Plan discussed with: Patient Date of Service: Sep 28, 2024 Billing Provider: VALENTINA CALIXTO MD Common Visit Codes: [id number] INP/OBS CARE(HIGH) Secondary Visit Codes: [id number] CHNG SMOKING 3-10m VALENTINA CALIXTO MD Sep 28, 2024 14:07
[2024-09-28] MEDS: PARoxetine 20 MG TAB PO ONE (14:15)
[2024-09-28] MEDS: PANTOPRAZOLE 40 MG TAB PO ONE (14:15)
--- NOTE | 2024-09-28 15:29 | DVH ---
CLINICAL INFORMATION: 59 years old, Male; fem stent. TECHNIQUE: Axial CTA images were obtained from the level of the mid to distal abdominal aorta the bi lateral lower extremities after the uneventful administration of 100 mL of Omnipaque 350 IV contrast. Coronal and sagittal reformatted images and MIP images were obtained, reviewed, and stored. One or m ore of the following dose reduction techniques were used: Automated exposure control. Adjustment of m A and/or kV according to patient size. CTDIvol = 11.3, 39.47, 0.07, 0.07 mGy DLP = 1559.46 mGy-cm COMPARISON: Right lower extremity arterial duplex exam dated 09/26/2024. FINDINGS: No abdominal aortic aneurysm or dissection. Moderate to marked calcified and noncalcified a theromatous plaque in the abdominal aorta and its visualized branches. Moderate to severe stenosis in the left common iliac artery due to noncalcified plaque. There is calcified and noncalcified atherom atous plaque in the bilateral internal and external iliac arteries with areas of moderate stenosis. In the right lower extremity, there is calcified and noncalcified atheromatous plaque in the common f emoral and superficial and deep femoral arteries. Areas of moderate stenosis are seen along the prox imal course of the right SFA, with complete occlusion at its distal aspect and continuing into the ri ght popliteal artery, where there is a stent, which is occluded proximally, with reconstitution at th e distal aspect of the stent due to collateral flow. The popliteal artery remains patent down to the level of the bifurcation of the anterior tibial and tibioperoneal trunk. No flow visualized in the an terior tibial artery below the level of the proximal to mid 3rd of the tibial diaphysis, suspected oc clusion, with no flow visualized in the dorsalis pedis artery. There is flow of contrast in the post erior tibial and peroneal arteries to the level of the ankle, with flow visualized more distally in t he right posterior tibial artery of the foot. In the left lower extremity, there is calcified and noncalcified plaque of the common femoral artery with teyw-ju-tfdtumig stenosis. There is a stent of the proximal left SFA, which appears patent down to the level of the proximal popliteal artery. Popliteal artery is patent throughout its course. Ther e is 3-vessel runoff with flow to the left foot via the posterior tibial artery. No flow visualized in the dorsalis pedis artery, although may be due to the timing of imaging on this single phase of c ontrast. No significant abnormality identified in the visualized portions of the abdomen and pelvis. There is a partially visualized small fat containing umbilical hernia. No significant soft tissue or osseous a bnormality identified in the lower extremities. IMPRESSION: 1. Peripheral arterial disease as detailed above. 2. Occlusion of the right SFA at its distal aspect and continuing into the right popliteal artery, wh ere there is a stent in place. Reconstitution of flow is seen at the level of the distal right popli teal artery. No flow of contrast visualized in the right anterior tibial artery below the level of th e proximal to mid 3rd of the tibial diaphysis, suspected occlusion, with no flow visualized in the do rsalis pedis artery. Contrast visualized at the level of the right foot in the right posterior tibial artery. 3. Stent in the left proximal SFA, appears patent down to the level of the proximal popliteal artery. There is 3-vessel runoff in the left lower extremity with flow to the foot via the posterior tibial artery. No flow visualized in the dorsalis pedis artery on the left, although may be due to the timin g of imaging on this single phase examination. 4. Additional findings as detailed above.
[2024-09-28 17:02] VITALS: BP 104/56; PULSE 62; RESP 17; TEMP 98.2; O2SAT 97
[2024-09-28] MEDS: GABAPENTIN 300 MG CAP PO ONE (17:49)
[2024-09-28 20:00] VITALS: PULSE 61
[2024-09-28 21:01] VITALS: BP 128/66; PULSE 64; RESP 14; TEMP 98; O2SAT 95
[2024-09-28] MEDS: CILOSTAZOL 100 MG TAB PO SCH (21:10)
[2024-09-28] MEDS: NYSTATIN TOPICAL POWDER 15GM TOP SCH (21:11)
[2024-09-29] VITALS (8 sets, daily range): BP systolic 107–141; BP diastolic 45–89; PULSE 51–68; RESP 13–20; TEMP 97.3–98.3; O2SAT 94–99
[2024-09-29 07:24] LABS: Potassium 4.4 mmol/L (3.5-5.1); Sodium 141 mmol/L (136-145)
[2024-09-29 07:25] LABS: Anion Gap 4 (5-15); Calcium 10.1 mg/dL (8.7-10.4); Carbon Dioxide 29 mmol/L (20-31)
[2024-09-29 07:30] LABS: BUN/Creatinine Ratio 14.8 (10.0-20.0); Blood Urea Nitrogen 13 mg/dL (9-23)
[2024-09-29 07:33] LABS: Chloride 108 mmol/L (98-107); Glucose 121 mg/dL (74-106)
[2024-09-29] MEDS: PANTOPRAZOLE 40 MG TAB PO SCH (09:53)
[2024-09-29] MEDS: PARoxetine 20 MG TAB PO SCH (09:54)
--- NOTE | 2024-09-29 12:06 | DVHCONRES ---
Date Seen: Sep 29, 2024 Resident Creating Document: KANDACE DASILVA Jr., MD Referring Physician [email or web address] Reason for Consultation Right leg claudication and rest pain History of Present Illness 59M presents to the Er w/ prior Hx of HTN, TIA, Mitral Valve Prolapse, and bila teral SFA stents which all may be associated to the c/c of LE pain. Pt reports on having right leg pain for the past 2 weeks w/ a pressure ulcer in the web space of the 2nd and 3rd digit. PMHx of Anxiety, GERD, High Lipids, and Skin Cancer. SHx of Appendectomy. Social Hx of tobacco use, Denies chills, fever, N/V/D, SOB, CP or other associated symptom's, modifiers, or recent injuries or sick contact at this time. Patient was states he has had bilateral SFA days angioplasty and stented most recent one was 2018. He also has had reintervention since then by an outside hospital. The right leg claudication is at approximately half a block. He also has rest pain at night. He continues to smoke Past Medical History HTN, TIA, Mitral Valve Prolapse, bilateral severe peripheral vascular disease. Family History: Cancer G8 MOTHER, Family history: Cardiovascular disease G8 FATHER, Allergies: Coded Allergies: Cephalexin (Verified Allergy, Severe, 06/29/13) Home Meds Active Scripts Aspirin (Asa) 81 Mg Ch, 81 MG PO DAILY, #30 TAB.CHEW Prov:BETINA SCHULZ MD 12/08/19 Clopidogrel Bisulfate (Plavix) 75 Mg Tab, 1 TAB PO DAILY, #30 TAB 1 Refill Prov:BETINA SCHULZ MD 12/08/19 Reported Medications Atorvastatin Calcium (ATORVASTATIN CALCIUM) 80 Mg Tab, 1 DAILY 09/28/24 Lisinopril (Lisinopril) 20 Mg Tab, 1 DAILY 09/28/24 Gabapentin (Gabapentin) 300 Mg Cap 09/28/24 Gabapentin (Gabapentin) 100 Mg Cap, 100 MG PO BID for 30 Days, MG 12/07/19 Paroxetine (PAXIL TABLET) 20 Mg Tb, 40 MG PO DAILY, #30 TAB 1 Refill 06/11/16 Esomeprazole Magnesium Trihydr (Nexium) 20 Mg Cap, 40 MG PO DAILY, #30 TAB 2 Refills 06/11/16 Current Medications Current Medications Medications (Trade) Dose Ordered Sig/Rosalind Route PRN Reason Start Time Stop Time Status Last Admin Nystatin (Mycostatin Powder) 1 applic BID TOP 09/28/24 22:00 09/28/24 21:11 Cilostazol (Pletal) 100 mg BID PO 09/28/24 22:00 09/29/24 09:52 Gabapentin (Neurontin Capsule) 600 mg BID PO 09/29/24 22:00 Paroxetine HCl (Paxil Tablet) 40 mg DAILY PO 09/29/24 10:00 09/29/24 09:54 Pantoprazole Sodium (Protonix Tablet) 40 mg DAILY PO 09/29/24 10:00 09/29/24 09:53 Review of Systems All systems reviewed were otherwise negative with the then with some HPI. Vital Signs Vital Signs Date Time Temp Pulse Resp B/P (MAP) Pulse Ox O2 Delivery O2 Flow Rate FiO2 09/29/24 09:54 115/89 09/29/24 09:53 57 09/29/24 09:00 97.3 20 98 97.3 09/29/24 08:00 Room Air* 0 21 Physical Exam Head eyes ears nose and throat exam eyes are nonicteric conjunctiva was pink neck was supple no JVD no lymphadenopathy new current bruits lungs clear to auscultation heart was regular rate and rhythm abdomen was soft and nontender with no pulsatile abdominal masses or bruits lower extremities palpable femoral pulses nonpalpable popliteal or pedal pulses bilaterally. Feet are warm he does have tingling sensations in both feet. Labs/Diagnostic Data Labs Test 09/29/24 06:47 09/28/24 06:30 09/27/24 07:36 09/27/24 03:37 Range/Units Sodium Level 141 136-145 mmol/L Potassium Level 4.4 3.5-5.1 mmol/L Chloride Level 108 H 98-107 mmol/L Carbon Dioxide Level 29 20-31 mmol/L Anion Gap 4 L 5-15 Blood Urea Nitrogen 13 9-23 mg/dL Creatinine 0.88 0.700-1.30 mg/dL Glomerular Filtration Rate Calc 100 >90 mL/min BUN/Creatinine Ratio 14.8 10.0-20.0 Serum Glucose 121 H 74-106 mg/dL Calcium Level 10.1 8.7-10.4 mg/dL White Blood Count 6.5 4.4-10.8 10^3/uL Red Blood Count 3.90 L 4.5-5.90 10^6/uL Hemoglobin 13.4 L 13.5-17.5 g/dL Hematocrit 38.6 L 41.0-53.0 % Mean Corpuscular Volume 99.0 80.0-100.0 fL Mean Corpuscular Hemoglobin 34.5 H 28.0-32.0 pg Mean Corpuscular Hemoglobin Concent 34.8 32.0-36.0 g/dL Red Cell Distribution Width 13.1 11.8-14.3 % Platelet Count 224 140-450 10^3/uL Mean Platelet Volume 6.8 L 6.9-10.8 fL Neutrophils (%) (Auto) 48.2 37.0-80.0 % Lymphocytes (%) (Auto) 30.0 10.0-50.0 % Monocytes (%) (Auto) 10.5 0.0-12.0 % Eosinophils (%) (Auto) 10.4 H 0.0-7.0 % Basophils (%) (Auto) 0.9 0.0-2.0 % Neutrophils # (Auto) 3.2 1.6-8.6 10 ^3/uL Lymphocytes # (Auto) 2.0 0.4-5.4 10 ^3/uL Monocytes # (Auto) 0.7 0-1.3 10 ^3/uL Eosinophils # (Auto) 0.7 0-0.8 10 ^3/uL Basophils # (Auto) 0.1 0-0.2 10 ^3/uL Nucleated Red Blood Cells 0.0 % POC Glucose 109 H 70-106 mg/dl Hemoglobin A1c 5.8 H <5.7 % A1C Total Bilirubin 0.2 0.2-1.0 mg/dL Aspartate Amino Transferase (AST) 15 13-40 U/L Alanine Aminotransferase (ALT) 22 7-40 U/L Alkaline Phosphatase 74 46-116 U/L B-Type Natriuretic Peptide 9.68 0-100 pg/mL Total Protein 7.0 5.7-8.2 g/dL Albumin 4.8 3.2-4.8 g/dL Triglycerides Level 153 H < 150 mg/dL Cholesterol Level 145 < 200 mg/dL LDL Cholesterol 83 < 100 mg/dL HDL Cholesterol 47 40-59 mg/dL CLINICAL INFORMATION: 59 years old, Male; fem stent. TECHNIQUE: Axial CTA images were obtained from the level of the mid to distal abdominal aorta the bilateral lower extremities after the uneventful administration of 100 mL of Omnipaque 350 IV contrast. Coronal and sagittal reformatted images and MIP images were obtained, reviewed, and stored. One or more of the following dose reduction techniques were used: Automated exposure control. Adjustment of mA and/or kV according to patient size. CTDIvol = 11.3, 39.47, 0.07, 0.07 mGy DLP = 1559.46 mGy-cm COMPARISON: Right lower extremity arterial duplex exam dated 09/26/2024. FINDINGS: No abdominal aortic aneurysm or dissection. Moderate to marked calcified and noncalcified atheromatous plaque in the abdominal aorta and its visualized branches. Moderate to severe stenosis in the left common iliac artery due to noncalcified plaque. There is calcified and noncalcified atheromatous plaque in the bilateral internal and external iliac arteries with areas of moderate stenosis. In the right lower extremity, there is calcified and noncalcified atheromatous plaque in the common femoral and superficial and deep femoral arteries. Areas of moderate stenosis are seen along the proximal course of the right SFA, with complete occlusion at its distal aspect and continuing into the right popliteal artery, where there is a stent, which is occluded proximally, with reconstitution at the distal aspect of the stent due to collateral flow. The popliteal artery remains patent down to the level of the bifurcation of the anterior tibial and tibioperoneal trunk. No flow visualized in the anterior tibial artery below the level of the proximal to mid 3rd of the tibial diaphysis, suspected occlusion, with no flow visualized in the dorsalis pedis artery. There is flow of contrast in the posterior tibial and peroneal arteries to the level of the ankle, with flow visualized more distally in the right posterior tibial artery of the foot. In the left lower extremity, there is calcified and noncalcified plaque of the common femoral artery with [id number] stenosis. There is a stent of the proximal left SFA, which appears patent down to the level of the proximal popliteal artery. Popliteal artery is patent throughout its course. There is 3- vessel runoff with flow to the left foot via the posterior tibial artery. No flow visualized in the dorsalis pedis artery, although may be due to the timing of imaging on this single phase of contrast. No significant abnormality identified in the visualized portions of the abdomen and pelvis. There is a partially visualized small fat containing umbilical hernia. No significant soft tissue or osseous abnormality identified in the lower extremities. IMPRESSION: 1. Peripheral arterial disease as detailed above. 2. Occlusion of the right SFA at its distal aspect and continuing into the right popliteal artery, where there is a stent in place. Reconstitution of flow is seen at the level of the distal right popliteal artery. No flow of contrast visualized in the right anterior tibial artery below the level of the proximal to mid 3rd of the tibial diaphysis, suspected occlusion, with no flow visualized in the dorsalis pedis artery. Contrast visualized at the level of the right foot in the right posterior tibial artery. 3. Stent in the left proximal SFA, appears patent down to the level of the proximal popliteal artery. There is 3-vessel runoff in the left lower extremity with flow to the foot via the posterior tibial artery. No flow visualized in the dorsalis pedis artery on the left, although may be due to the timing of imaging on this single phase examination. 4. Additional findings as detailed above. Assessment Right SFA occlusion We will plan on performing aortogram bilateral lower extremity arteriogram with possible endovascular revascularization of the right leg on September 30, 2024. Stressed the importance of quitting smoking. NPO after midnight Patient agrees to the above plan. Plan/Recommendation Right SFA occlusion We will plan on performing aortogram bilateral lower extremity arteriogram with possible endovascular revascularization of the right leg on September 30, 2024. Stressed the importance of quitting smoking. NPO after midnight Patient agrees to the above plan. Plan discussed with: Patient KANDACE DASILVA Jr., MD Sep 29, 2024 12:06
--- NOTE | 2024-09-29 15:17 | DVHPN2 ---
Assessment/Plan Assessment/Plan Progress note 59 yo M with TIA, HTN, MVP smoker, PAD s/p fem stents, admitted for R leg pain and ulcer seen during rounds, seen by vascular. patient still smokes. plan for angio tomorrow Physical exam Alert oriented x3 able to ambulate clear breath sounds s1 s2 rrr abdomen soft LE edema with foot ulcer, dim pulse labs ekg imaging reviewed PAD with foot ulcer s/p fem stents HTN Hx of TIA smoker vascular consult appreciated asa lipitor smoking cessation, NRT resume home meds wound consult send lipid a1c plan for angio tomorrw mycostatin powder on feet add cilostazol hold plavix for procedure resume home meds cta with runoff diet cardiac dvt ppx hold possible procedure discussed smoking cessation 10 minutes Plan discussed with: Patient My Orders Orders - VALENTINA CALIXTO MD Procedure Category Date Status Time Cleanse Wound With TA 09/28/24 In Process Wound Clean 16:39 Date of Service: Sep 29, 2024 Billing Provider: VALENTINA CALIXTO MD Common Visit Codes: [id number] INP/OBS CARE(HIGH) Secondary Visit Codes: [id number] CHNG SMOKING 3-10m VALENTINA CALIXTO MD Sep 29, 2024 15:17
[2024-09-29] MEDS: GABAPENTIN 300 MG CAP PO SCH (21:35)
[2024-09-29 21:51] LABS: Urine Bacteria None Seen /hpf (None Seen)
[2024-09-29 21:59] LABS: Urine Blood Negative /uL (Negative); Urine Clarity Clear (Clear); Urine Protein, UAD Negative (Negative); Urine Specific Gravity 1.006 (1.001-1.035); Urine Squamous Epithelial Cell FEW /hpf (<5); Urine Urobilinogen Normal (Negative)
[2024-09-29 22:12] LABS: Urine Color STRAW (Yellow)
[2024-09-30] VITALS (8 sets, daily range): BP systolic 101–136; BP diastolic 49–72; PULSE 51–65; RESP 16–20; TEMP 97–98.2; O2SAT 92–98
--- NOTE | 2024-09-30 05:16 | DVH ---
EXAM: XR Chest, 1 View CLINICAL INDICATION: For procedure TECHNIQUE: Frontal view of the chest. COMPARISON: None FINDINGS: LUNGS AND PLEURAL SPACES: Left basilar atelectasis or pneumonia. No pneumothorax. HEART: Unremarkable. No cardiomegaly. MEDIASTINUM: Unremarkable. Normal mediastinal contour. BONES/JOINTS: Unremarkable. No acute fracture. OTHER FINDINGS: . None. . .. IMPRESSION: Left basilar atelectasis or pneumonia.
[2024-09-30 06:43] LABS: Basophils # (auto) 0 10 ^3/uL (0-0.2); Basophils % (auto) 0.6 % (0.0-2.0); Eosinophils # (auto) 0.8 10 ^3/uL (0-0.8); Eosinophils % (auto) 11.3 % (0.0-7.0); Hematocrit 39.7 % (41.0-53.0); Hemoglobin 13.6 g/dL (13.5-17.5); Lymphocytes # (auto) 2.1 10 ^3/uL (0.4-5.4); Mean Corpuscular Hemoglobin 33.7 pg (28.0-32.0); Mean Corpuscular Hgb Conc. 34.2 g/dL (32.0-36.0); Mean Corpuscular Volume 98.7 fL (80.0-100.0); Monocytes # (auto) 0.7 10 ^3/uL (0-1.3); Monocytes % (auto) 9.6 % (0.0-12.0); Neutrophils # (auto) 3.4 10 ^3/uL (1.6-8.6); Neutrophils % (auto) 48.5 % (37.0-80.0); Nucleated Red Blood Cells % 0.1 %; Platelet Count (auto) 246 10^3/uL (140-450); Red Blood Cells 4.02 10^6/uL (4.5-5.90); Red Cell Distribution Width 12.9 % (11.8-14.3)
[2024-09-30 06:54] LABS: INR 1.02 (0.9-1.15); Partial Thromboplastin Time 33.5 SEC (24.5-34.5); Prothrombin Time 10.8 sec (9.3-11.8)
[2024-09-30 07:05] LABS: Anion Gap 5 (5-15); Carbon Dioxide 28 mmol/L (20-31); Chloride 106 mmol/L (98-107); Sodium 139 mmol/L (136-145)
[2024-09-30 07:06] LABS: Calcium 9.9 mg/dL (8.7-10.4)
[2024-09-30 07:11] LABS: BUN/Creatinine Ratio 13.8 (10.0-20.0); Blood Urea Nitrogen 13 mg/dL (9-23)
[2024-09-30 07:25] LABS: Glucose 121 mg/dL (74-106)
--- NOTE | 2024-09-30 14:32 | ECG ---
[facility] Test Date: 2024-09-30 Test Time: 00:11:27 Pat Name: SEDRICK DICKEY Department: Respiratoy Room: 0247T A Gender: M Actimize Architect: Kraig SANTOS : 1965 Requested By: KANDACE DASILVA Order Number: [id number] Reading MD: Yusuf Ceballos Measurements Intervals [place] Rate: 57 P: 20 VA: 153 QRS: -60 QRSD: 152 T: -1 QT: 452 QTc: 440 Interpretive Statements Sinus rhythm RBBB and LAFB Electronically Signed On 10-01-2024 9:34:43 PST by Yusuf Ceballos Please click the below link to view image of tracing.
--- NOTE | 2024-09-30 14:40 | DVHPN2 ---
Assessment/Plan Assessment/Plan Progress note 59 yo M with TIA, HTN, MVP smoker, PAD s/p fem stents, admitted for R leg pain and ulcer seen during rounds, seen by vascular. patient to get angio today with vascular Physical exam Alert oriented x3 able to ambulate clear breath sounds s1 s2 rrr abdomen soft LE edema with foot ulcer, dim pulse labs ekg imaging reviewed PAD with foot ulcer s/p fem stents HTN Hx of TIA smoker vascular consult appreciated asa lipitor smoking cessation, NRT resume home meds wound consult send lipid a1c plan for angio tomorrw mycostatin powder on feet add cilostazol hold plavix for procedure resume home meds cta with runoff diet cardiac dvt ppx hold possible procedure discussed smoking cessation 10 minutes Plan discussed with: Patient Date of Service: Sep 30, 2024 Billing Provider: VALENTINA CALIXTO MD Common Visit Codes: [id number] INP/OBS CARE(HIGH) VALENTINA CALIXTO MD Sep 30, 2024 14:40
[2024-10-01] VITALS (12 sets, daily range): BP systolic 101–138; BP diastolic 45–87; PULSE 54–74; RESP 11–20; TEMP 97.4–97.9; O2SAT 92–98
--- NOTE | 2024-10-01 11:14 | DVHPN2 ---
Assessment/Plan Assessment/Plan Progress note 59 yo M with TIA, HTN, MVP smoker, PAD s/p fem stents, admitted for R leg pain and ulcer seen during rounds, seen by vascular. patient to get angio today with vascular. still leaves to smoke Physical exam Alert oriented x3 able to ambulate clear breath sounds s1 s2 rrr abdomen soft LE edema with foot ulcer, dim pulse labs ekg imaging reviewed PAD with foot ulcer s/p fem stents HTN Hx of TIA smoker vascular consult appreciated asa lipitor smoking cessation, NRT resume home meds wound consult send lipid a1c plan for angio tomorrw mycostatin powder on feet add cilostazol hold plavix for procedure resume home meds cta with runoff diet cardiac dvt ppx hold possible procedure discussed smoking cessation 10 minutes Plan discussed with: Patient Date of Service: Oct 01, 2024 Billing Provider: VALENTINA CALIXTO MD Common Visit Codes: [id number] INP/OBS CARE(HIGH) VALENTINA CALIXTO MD Oct 01, 2024 11:14
[2024-10-01] MEDS: IODIXANOL 320MG/ML 100ML BTL IV ONE (13:30)
[2024-10-01] MEDS: HEPARIN SODIUM (PORCINE) 5000 UNITS/ML 1ML VIAL ONE (14:36)
[2024-10-01] MEDS: fentaNYL CITRATE 100 MCG/2 ML VL ONE ×2 (14:37→15:26)
[2024-10-01] MEDS: MIDAZOLAM HCL 2MG/2ML 2ml VIAL (1mg/ml) ONE ×2 (14:37→15:27)
[2024-10-01] MEDS: LIDOCAINE 2%HCL (LOCAL ANESTH.) INJ 20ML MDV ONE (14:37)
[2024-10-01] MEDS: HEPARIN DRIP/D5W 100UNITS/ML 0 ML IV ONE (14:38)
--- NOTE | 2024-10-01 16:10 | POSTOP ---
Post-Operative Note Post-Operative Note Preop Diagnosis Right leg rest pain Postop Diagnosis: Right SFA occlusion at site of distal SFA fractured stent Operation performed Aortogram with a right lower extremity arteriogram Specimen None Anesthesia: Mac Anesthesiologist: cons sedation Surgeon Parag Quiros MD Date 10/01/24 Time 16:09 PARAG QUIROS Jr., MD Oct 01, 2024 16:10
--- NOTE | 2024-10-01 16:16 | DVHOP2 ---
Operative Report - 2 Report Details Date: 10/01/24 Preop Diagnosis: Right leg rest pain Postop Diagnosis: Right SFA occlusion at site of distal SFA fractured stent Surgeon: Parag Quiros MD Anesthesiologist: cons sedation Anesthesia: Mac Consent: The patient was informed of the risks and benefits of the procedure. These in clude but are not limited to complications of anesthesia, postoperative infection, incomplete relief of symptoms, recurrence of symptoms, damage to blood vessels, nerves and tendons, deep venous thrombosis, pulmonary embolism and possible need for repeat surgery in the future. Name of Procedure Performed Aortogram with a right lower extremity arteriogram Procedure Details Procedure Details: The patient was identified in the preop hold area is pain Mr. Rosales at this point in time he was consented and preop by myself he was brought back to the mechanical shop laborer placed in the mechanical shop laborer table in supine position after adequate induction anesthesia antibiotics time-out right and left groin were prepped and draped in a normal surgical fashion. The area over top of the left common femoral artery was anesthetized 1% lidocaine a 4 Macanese micropuncture needle was then used to cannulate the left common femoral artery under ultrasound guidance. This was exchanged for a 6 Macanese sheath a angiogram demonstrated he had an occluded SFA stent with a patent common femoral artery on the right side as profunda is patent as well. A wire and catheter were then passed up into the aorta aortogram was performed and demonstrated a widely patent aorto however was mildly dilated in the distal portion. The common iliacs and external iliacs were widely patent bilaterally. Catheter and wire were then manipulated over into the common femoral artery on the right side. The lower extremity arteriogram was performed which demonstrated a widely patent common femoral artery profunda. The SFA was proximally patent down to the level of the adductor canal where there was old stent in place which was fractured and there was an occlusion of the SFA at the level the above knee popliteal artery did reconstitute and then it was three-vessel runoff below his knee. A destination sheath was then inserted down to the level just above the stent and using wires and several different catheters the stent was not able to be traversed. At this point in time it was felt the best option for this patient will be open surgical bypass. At this point in time the catheters and sheaths were removed a 6 Macanese Angio-Seal was deployed without any difficulty. The patient awoke without any difficulty he has taken the recovery room in stable condition Specimen: None Condition Good Disposition home PARAG QUIROS Jr., MD Oct 01, 2024 16:16
[2024-10-02] VITALS (8 sets, daily range): BP systolic 118–135; BP diastolic 56–75; PULSE 61–94; RESP 18–19; TEMP 96.6–98.8; O2SAT 62–99
[2024-10-02 06:39] LABS: Alanine Aminotransferase 33 U/L (7-40); Alkaline Phosphatase 78 U/L (46-116); Calcium 10.2 mg/dL (8.7-10.4)
[2024-10-02 06:40] LABS: Anion Gap 5 (5-15); Aspartate Aminotransferase 20 U/L (13-40); BUN/Creatinine Ratio 17.2 (10.0-20.0); Bilirubin, Total 0.4 mg/dL (0.2-1.0); Blood Urea Nitrogen 16 mg/dL (9-23); Carbon Dioxide 29 mmol/L (20-31); Chloride 106 mmol/L (98-107); Magnesium 1.8 mg/dL (1.6-2.6); Phosphorus 3.6 mg/dL (2.4-5.1); Potassium 4.2 mmol/L (3.5-5.1); Sodium 140 mmol/L (136-145); Total Protein 7.1 g/dL (5.7-8.2)
[2024-10-02 06:41] LABS: Glucose 157 mg/dL (74-106)
[2024-10-02 07:05] LABS: Basophils # (auto) 0.1 10 ^3/uL (0-0.2); Basophils % (auto) 0.8 % (0.0-2.0); Eosinophils # (auto) 0.7 10 ^3/uL (0-0.8); Eosinophils % (auto) 8.1 % (0.0-7.0); Hematocrit 44.1 % (41.0-53.0); Lymphocytes # (auto) 2.1 10 ^3/uL (0.4-5.4); Mean Corpuscular Hemoglobin 33.7 pg (28.0-32.0); Mean Corpuscular Hgb Conc. 34.1 g/dL (32.0-36.0); Monocytes # (auto) 0.7 10 ^3/uL (0-1.3); Neutrophils # (auto) 4.8 10 ^3/uL (1.6-8.6); Neutrophils % (auto) 57.1 % (37.0-80.0); Nucleated Red Blood Cells % 0.1 %; Platelet Count (auto) 270 10^3/uL (140-450); Red Blood Cells 4.46 10^6/uL (4.5-5.90); Red Cell Distribution Width 12.9 % (11.8-14.3); White Blood Cell 8.3 10^3/uL (4.4-10.8)
--- NOTE | 2024-10-02 09:53 | DVHPN2 ---
Assessment/Plan Assessment/Plan Progress note 59 yo M with TIA, HTN, MVP smoker, PAD s/p fem stents, admitted for R leg pain and ulcer seen during rounds, seen by vascular. discussed with dr Quiros, patient with crushed stent, will need a fempop bypass, scheduled for saturday. Hx of MVP, EKG with RBBB and LAFB, hx of TIA, RCRI 1, low risk for low risk procedure. Cardio for further clearance if needed by anesthesia Physical exam Alert oriented x3 able to ambulate clear breath sounds s1 s2 rrr abdomen soft LE edema with foot ulcer, dim pulse labs ekg imaging reviewed PAD with foot ulcer s/p fem stents curshed stents, requiring fempop bypass HTN Hx of TIA smoker vascular consult appreciated asa lipitor smoking cessation, NRT resume home meds wound consult send lipid a1c plan for angio tomorrw mycostatin powder on feet add cilostazol hold plavix for procedure resume home meds cta with runoff NPO saturday midnight, preop lasb diet cardiac dvt ppx hold possible procedure discussed smoking cessation 10 minutes Plan discussed with: Patient My Orders Orders - VALENTINA CALIXTO MD Procedure Category Date Status Time Echo 2d Mode Cardiac US 10/02/24 Logged DOP 20:18 * Cardiology Consult CONS 10/02/24 Transmitted 09:36 Date of Service: Oct 02, 2024 Billing Provider: VALENTINA CALIXTO MD Common Visit Codes: [id number] INP/OBS CARE(HIGH) VALENTINA CALIXTO MD Oct 02, 2024 09:53
--- NOTE | 2024-10-02 11:46 | DVH ---
CHEST RADIOGRAPH Indication: pain Technique: Single frontal view of the chest was obtained COMPARISON: XY CHEST PORTABLE on DOS: 09/30/24, XY CHEST XRAY 1 VIEW on DOS: 11/07/23 FINDINGS: Lines and Tubes: None Lungs: Clear Pleura: No effusion. No pneumothorax. Cardiomediastinal contours: Unremarkable Bones: Unremarkable IMPRESSION: No acute disease.
--- NOTE | 2024-10-02 12:26 | DVHINCON2 ---
Date Seen: Oct 02, 2024 Referring Physician MD Tirso Reason for Consultation Cardiac risk stratification, RBBB/LAFB, MVP History of Present Illness This is a 59-year-old male patient who presents to emergency room with chief complaint of right lower extremity pain. He came to the emergency room for further evaluation. An arterial duplex revealed right common femoral and deep femoral arteries suggested 50-75% stenosis. A CT angio abdominal aorta with runoff revealed peripheral arterial disease with occlusion of the right SFA and its distal aspect continuing into the right popliteal artery. Yesterday, the patient was taken to the hemodialysis lab technician and underwent an aortogram with the right lower extremity arteriogram in which it was found that the patient's previous stent in the right SFA was fractured. At this point, the vascular team is recommending open surgical bypass via right femoral to popliteal artery bypass. Cardiology has now been consulted for cardiac risk stratification. Initial twelve lead electrocardiogram reveals normal sinus rhythm with right bundle branch block and left anterior fascicular block. Initial troponin is negative. The patient denies any cardiac symptoms. Significant past medical history includes peripheral arterial disease status post PTCA with 2 TERRY on Plavix (one in right and one in left leg), hypertension, dyslipidemia, TIA, peripheral neuropathy, skin cancer, obesity, heavy alcohol use, and heavy tobacco use. The patient denies following a fitness coordinator or vascular team in the outpatient setting. Past Medical History Past medical history reviewed. No other significant than mentioned above. Past Surgical History Appendectomy Family History: Cancer G8 MOTHER, Family history: Cardiovascular disease G8 FATHER, Family History Family history reviewed. Social History Patient has a 80 pack-year history, smokes approximately two packs per day Patient admits to drinking 6-12 cans of beer every night Patient denies any illicit drug use Allergies: Coded Allergies: Cephalexin (Verified Allergy, Severe, 06/29/13) Home Meds Active Scripts Aspirin (Asa) 81 Mg Ch, 81 MG PO DAILY, #30 TAB.CHEW Prov:BETINA SCHULZ MD 12/08/19 Clopidogrel Bisulfate (Plavix) 75 Mg Tab, 1 TAB PO DAILY, #30 TAB 1 Refill Prov:BETINA SCHULZ MD 12/08/19 Reported Medications Atorvastatin Calcium (ATORVASTATIN CALCIUM) 80 Mg Tab, 1 DAILY 09/28/24 Lisinopril (Lisinopril) 20 Mg Tab, 1 DAILY 09/28/24 Gabapentin (Gabapentin) 300 Mg Cap 09/28/24 Gabapentin (Gabapentin) 100 Mg Cap, 100 MG PO BID for 30 Days, MG 12/07/19 Paroxetine (PAXIL TABLET) 20 Mg Tb, 40 MG PO DAILY, #30 TAB 1 Refill 06/11/16 Esomeprazole Magnesium Trihydr (Nexium) 20 Mg Cap, 40 MG PO DAILY, #30 TAB 2 Refills 06/11/16 Home Meds Home medications reviewed. Review of Systems Constitutional: No symptom reported Ears, Nose, & Throat: No symptom reported Eyes: No symptom reported Neurological: No symptoms reported Pulmonary/Respiratory: No symptoms reported Cardiovascular: Lower extremity pain Gastrointestinal: No symptom reported Genitourinary: No symptom reported Musculoskeletal: No symptom reported Skin: No symptom reported Psychiatric: No symptom reported Endocrine: No symptom reported Hematologic/Lymphatic: No symptom reported Vital Signs Vital Signs Date Time Temp Pulse Resp B/P (MAP) Pulse Ox O2 Delivery O2 Flow Rate FiO2 10/02/24 09:04 72 135/66 10/02/24 09:00 97.9 18 98 97.9 10/01/24 20:00 Room Air* 0 21 Physical Exam General Appearance: Cooperative. Well-developed. Well-nourished. No acute distress. Pulmonary/Respiratory: Clear, bilateral breaths sounds. Cardiovascular/Chest: Regular rate and rhythm. Peripheral Pulses: 2+ Radial (R). 2+ Radial (L). 2+ Pedal (R). 2+ Pedal (L) Abdominal Exam: Normal bowel sounds. Ankle Exam: Negative ankle edema Lower extremities: Negative lower extremity edema Neuro/Mental Status: A/OX4, coherent. Thoughts/Psych: Normal thought pattern. Appropriate mood and affect. Good judgment and insight. Appearance: No acute distress. Skin Exam: Labs/Diagnostic Data Labs Test 10/02/24 06:11 09/30/24 06:11 09/29/24 21:50 09/27/24 07:36 Range/Units White Blood Count 8.3 4.4-10.8 10^3/uL Red Blood Count 4.46 L 4.5-5.90 10^6/uL Hemoglobin 15.0 13.5-17.5 g/dL Hematocrit 44.1 # 41.0-53.0 % Mean Corpuscular Volume 99.0 80.0-100.0 fL Mean Corpuscular Hemoglobin 33.7 H 28.0-32.0 pg Mean Corpuscular Hemoglobin Concent 34.1 32.0-36.0 g/dL Red Cell Distribution Width 12.9 11.8-14.3 % Platelet Count 270 140-450 10^3/uL Mean Platelet Volume 7.4 6.9-10.8 fL Neutrophils (%) (Auto) 57.1 37.0-80.0 % Lymphocytes (%) (Auto) 25.0 10.0-50.0 % Monocytes (%) (Auto) 9.0 0.0-12.0 % Eosinophils (%) (Auto) 8.1 H 0.0-7.0 % Basophils (%) (Auto) 0.8 0.0-2.0 % Neutrophils # (Auto) 4.8 1.6-8.6 10 ^3/uL Lymphocytes # (Auto) 2.1 0.4-5.4 10 ^3/uL Monocytes # (Auto) 0.7 0-1.3 10 ^3/uL Eosinophils # (Auto) 0.7 0-0.8 10 ^3/uL Basophils # (Auto) 0.1 0-0.2 10 ^3/uL Nucleated Red Blood Cells 0.1 % Sodium Level 140 136-145 mmol/L Potassium Level 4.2 3.5-5.1 mmol/L Chloride Level 106 98-107 mmol/L Carbon Dioxide Level 29 20-31 mmol/L Anion Gap 5 5-15 Blood Urea Nitrogen 16 9-23 mg/dL Creatinine 0.93 0.700-1.30 mg/dL Glomerular Filtration Rate Calc 95 >90 mL/min BUN/Creatinine Ratio 17.2 10.0-20.0 Serum Glucose 157 H 74-106 mg/dL Calcium Level 10.2 8.7-10.4 mg/dL Phosphorus Level 3.6 2.4-5.1 mg/dL Magnesium Level 1.8 1.6-2.6 mg/dL Total Bilirubin 0.4 0.2-1.0 mg/dL Aspartate Amino Transferase (AST) 20 13-40 U/L Alanine Aminotransferase (ALT) 33 7-40 U/L Alkaline Phosphatase 78 46-116 U/L Troponin I High Sensitivity 4 </=54 ng/L B-Type Natriuretic Peptide 10.26 0-100 pg/mL Total Protein 7.1 5.7-8.2 g/dL Albumin 5.0 H 3.2-4.8 g/dL Prothrombin Time 10.8 9.3-11.8 sec Prothrombin Time INR 1.02 0.9-1.15 Activated Partial Thromboplast Time 33.5 24.5-34.5 SEC Urine Color Straw Yellow Urine Clarity Clear Clear Urine pH 6.0 5.0-9.0 Urine Specific [place] 1.006 1.001-1.035 Urine Protein Negative Negative Urine Ketones Negative Negative Urine Blood Negative Negative /uL Urine Nitrite Negative Negative Urine Bilirubin Negative Negative Urine Urobilinogen Normal Negative mg/dL Urine Leukocyte Esterase Negative Negative /uL Urine RBC 1 0 - 3 /hpf Urine Microscopic WBC 0-3 /HPF Urine Squamous Epithelial Cells Few <5 /hpf Urine Bacteria None seen None Seen /hpf Urine Glucose Normal Normal mg/dL POC Glucose 109 H 70-106 mg/dl Test 09/27/24 03:37 Range/Units Hemoglobin A1c 5.8 H <5.7 % A1C Triglycerides Level 153 H < 150 mg/dL Cholesterol Level 145 < 200 mg/dL LDL Cholesterol 83 < 100 mg/dL HDL Cholesterol 47 40-59 mg/dL Assessment Preprocedural cardiovascular examination Peripheral arterial disease status post PTCA X 2 TERRY in each leg (on Plavix) Hypertension Dyslipidemia TIA Peripheral neuropathy Skin cancer Heavy alcohol use Heavy tobacco use Obesity Plan/Recommendation We will continue following plan/recommendations (Dr. Lorenzana): Case reviewed and discussed with . Transthoracic echocardiogram reveals EF 60%. Revised cardiac risk index (Luke criteria): 1 point (6.0% risk of major cardiac event). The patient has no cardiac contraindications to proceed with procedure. Cardiac symptoms have been ruled out. There is no underlying history of congestive heart failure. Prior to admission, the patient reports he has a good functional capacity. Per Cardiology standpoint, the patient is at an acceptable risk for moderate risk surgery. There is no additional cardiac workup indicated prior to surgery. Thank you for allowing us to care for this patient. Please call with any questions or concerns. Critical care time spent: 40 minutes This medical document was created using an electronic medical record system with voice recognition software and computerized dictation system. Although this document has been carefully reviewed, there might still be some phonetic and typographical errors. Occasional wrong-word or ``sound-alike substitutions may have occurred due to the inherent limitations of voice recognition software. These areas are purely typographical due to imperfections of the software pro grams and do not reflect any compromise in the patient's medical care. Please read the chart carefully and recognize, using context, where these substitutions have occurred. Plan discussed with: Patient NYHA Physical activity limitations: NA Date of Service: Oct 02, 2024 Billing Provider: JUNAID OROZCO Cardiology Common Codes: [id number] INP/OBS CARE (High) Cardiology Consultation Codes: [id number] CONSULT <45MIN JUNAID OROZCO Oct 02, 2024 12:26
--- NOTE | 2024-10-02 15:20 | DVHSR ---
APPROVED REPORT EXAM: Two-dimensional and M-mode echocardiogram with Doppler and color Doppler. Blood Pressure: 135/56 mmHg INDICATION Pre-Op RISK FACTORS Height: 74, Weight: 229 DIMENSIONS LVDd (3.8-5.7cm)LA (2D)4.1 (1.9-4.0cm)Aortic Root3.8 (2.0-3.7cm) LVDs (2.5-4.0cm)LA (MM) (1.9-4.0cm)Aortic Cusp Exc2.2 (1.5-2.0cm) EF (%) 65.0 (55-70%)Rt. Atrium4.8 (1.9-4.0cm)Asc. Aorta cm Mitral Valve MitralMitral Stenosis E wave0.60m/sMV Mean GR.mmHg A wave0.89m/sMV Peak GR.mmHg E/A ratio0.72D MVAcm2 DECEL [id number] 1/2 [id number] IVRTmsDop MVA1.58cm2 Aortic Valve Aortic ValveAortic Stenosis V11.25m/Jasmin Mean GR.5mmHg V21.60m/Jasmin Peak GR.10mmHg LVOT Diameter2.3 (1.8-2.4cm)Doppler AVA3.24cm2 Pulmonic Valve V20.91m/s Other Information Technically limited study due to body habitus. Conclusion lvef 60% by visual estimate normal RV function, no severe valve abnormalities noted
[2024-10-03] VITALS (7 sets, daily range): BP systolic 111–145; BP diastolic 62–86; PULSE 78–98; RESP 17–20; TEMP 97.5–99; O2SAT 94–97
--- NOTE | 2024-10-03 17:02 | DVHPN2 ---
Subjective 10/03-patient at baseline, vitals stable. going for walks. Continue plan for OR on Thursday 10/05 Reviewed: H&P Changes from previous H/P or p: No Changes General: Per HPI Eyes: No Pain, No Vision change, No Conjunctivae inflammation, No Eyelid inflammation, No Other, No Redness ENT: No Ear pain, No Ear discharge, No Nose pain, No Nose discharge, No Nose congestion, No Mouth pain, No Mouth swelling, No Throat pain, No Throat swelling, No Other Cardiovascular: No Chest Pain, No Palpitations, No Orthopnea, No Paroxysmal Noc. Dyspnea, No Edema, No Lt Headedness, No Other Respiratory: No Cough, No Dry, No Shortness of breath, No SOB with excertion, No Wheezing, No Hemoptysis, No Pleuritic Pain, No Sputum, No Other Gastrointestinal: No Nausea, No Vomiting, No Abdominal Pain, No Diarrhea, No Constipation, No Melena, No Hematochezia, No Other Genitourinary: No Dysuria, No Frequency, No Incontinence, No Hematuria, No Retention, No Other Musculoskeletal: other (Right foot pain); No neck pain, No shoulder pain, No arm pain, No back pain, No hand pain, No leg pain, No foot pain Skin: Rash (Right Foot ulcer pain); No Lesions, No Jaundice, No Bruising, No Other Objective Vitals Vital Signs Date Time Temp Pulse Resp B/P (MAP) Pulse Ox O2 Delivery O2 Flow Rate FiO2 10/03/24 16:00 97.9 82 17 131/63 (85) 97 97.9 10/03/24 08:15 Room Air* 0 21 Intake/Output Intake and Output 10/03/24 07:00 Intake Total 2020 ml Balance 2020 ml Intake Oral 2020 ml # Voids 10 Exam Alert oriented x3 able to ambulate clear breath sounds s1 s2 rrr abdomen soft LE edema with foot ulcer, dim pulse Medications Current Medications Medications Dose Ordered Sig/Rosalind Route Start Time Stop Time Status Last Admin Dose Admin Amlodipine Besylate 5 mg DAILY PO 09/27/24 10:00 10/03/24 08:40 5 MG Enoxaparin Sodium 100 mg Q12H SC 09/27/24 05:00 10/03/24 05:13 100 MG Sodium Chloride 1,000 ml @ 60 mls/hr [id number] IV 09/26/24 21:00 10/03/24 03:29 60 MLS/HR Acetaminophen/ Hydrocodone Bitart 1 tab Q4HP PRN PO 09/26/24 21:00 10/02/24 21:04 1 TAB Metoprolol Tartrate 25 mg BID PO 09/26/24 22:00 10/03/24 08:41 25 MG Aspirin 81 mg DAILY PO 09/28/24 10:00 10/03/24 08:41 81 MG Atorvastatin Calcium 40 mg HS PO 09/27/24 22:00 10/02/24 21:05 40 MG Nystatin 1 applic BID TOP 09/28/24 22:00 10/03/24 08:43 1 APPLIC Cilostazol 100 mg BID PO 09/28/24 22:00 10/03/24 08:39 100 MG Gabapentin 600 mg BID PO 09/29/24 22:00 10/03/24 08:39 600 MG Paroxetine HCl 40 mg DAILY PO 09/29/24 10:00 10/03/24 08:40 40 MG Pantoprazole Sodium 40 mg DAILY PO 09/29/24 10:00 10/03/24 08:40 40 MG Laboratory Results Laboratory Tests 10/02/24 06:11 Urinalysis Test 09/29/24 21:50 Urine Color Straw (Yellow) Urine Clarity Clear (Clear) Urine pH 6.0 (5.0-9.0) Urine Specific [place] 1.006 (1.001-1.035) Urine Protein Negative (Negative) Urine Ketones Negative (Negative) Urine Blood Negative /uL (Negative) Urine Nitrite Negative (Negative) Urine Bilirubin Negative (Negative) Urine Urobilinogen Normal mg/dL (Negative) Urine Leukocyte Esterase Negative /uL (Negative) Urine RBC 1 /hpf (0 - 3) Urine Microscopic WBC /HPF (0-3) Urine Squamous Epithelial Cells Few /hpf (<5) Urine Bacteria None seen /hpf (None Seen) Urine Glucose Normal mg/dL (Normal) Labs and/or images reviewed: Labs reviewed by me, Image(s) reviewed by me Assessment/Plan Assessment/Plan 10/03-patient at baseline, vitals stable. going for walks. Continue plan for OR on Thursday 10/05 assessment: PAD status post PTCA X 2 TERRY in each leg (on Plavix), current with foot ulcer curshed stents, requiring fempop bypass Hypertension Dyslipidemia TIA Peripheral neuropathy Skin cancer Heavy alcohol use Heavy tobacco use Obesity Plan: vascular consult appreciated asa lipitor smoking cessation, NRT resume home meds wound consult send lipid a1c plan for angio tomorrw mycostatin powder on feet add cilostazol hold plavix for procedure resume home meds cta with runoff NPO saturday midnight, preop lasb diet cardiac dvt ppx hold possible procedure Plan discussed with: Patient Date of Service: Oct 03, 2024 Billing Provider: JESUS SANON MD Common Visit Codes: [id number] INP/OBS CARE(HIGH) JESUS SANON MD Oct 03, 2024 17:02
[2024-10-04] VITALS (7 sets, daily range): BP systolic 102–130; BP diastolic 56–77; PULSE 70–92; RESP 17–19; TEMP 97.5–99.6; O2SAT 92–98
[2024-10-04] MEDS ORDERED: DOXYCYCLINE 100MG/100ML 100 ML IV ONE (11:45)
[2024-10-04] MEDS ORDERED: guaiFENesin-DM 100/10mg/5ml SYR PO ONE (12:00)
[2024-10-04] MEDS ORDERED: guaiFENesin-DM 100/10mg/5ml SYR PO PRN (12:00)
[2024-10-04 12:45] LABS: COVID19 ANTIGEN SOFIA FIA NEGATIVE (NEGATIVE); Rapid Influenza A Negative (Negative); Rapid Influenza B Negative (Negative)
--- NOTE | 2024-10-04 16:26 | DVHPN2 ---
Subjective Update 10/04 10/03-patient at baseline, vitals stable. going for walks. Continue plan for OR on 10/05 patient doing well, out of bed. Tolerating diet. Patient lateral left wrist has erythema from prior IV line access. No systemic symptoms. We will start Ancef empirically. Reviewed: H&P Changes from previous H/P or p: No Changes General: Per HPI Eyes: No Pain, No Vision change, No Conjunctivae inflammation, No Eyelid inflammation, No Other, No Redness ENT: No Ear pain, No Ear discharge, No Nose pain, No Nose discharge, No Nose congestion, No Mouth pain, No Mouth swelling, No Throat pain, No Throat swelling, No Other Cardiovascular: No Chest Pain, No Palpitations, No Orthopnea, No Paroxysmal Noc. Dyspnea, No Edema, No Lt Headedness, No Other Respiratory: No Cough, No Dry, No Shortness of breath, No SOB with excertion, No Wheezing, No Hemoptysis, No Pleuritic Pain, No Sputum, No Other Gastrointestinal: No Nausea, No Vomiting, No Abdominal Pain, No Diarrhea, No Constipation, No Melena, No Hematochezia, No Other Genitourinary: No Dysuria, No Frequency, No Incontinence, No Hematuria, No Retention, No Other Musculoskeletal: other (Right foot pain); No neck pain, No shoulder pain, No arm pain, No back pain, No hand pain, No leg pain, No foot pain Skin: Rash (Right Foot ulcer pain); No Lesions, No Jaundice, No Bruising, No Other Objective Vitals Vital Signs Date Time Temp Pulse Resp B/P (MAP) Pulse Ox O2 Delivery O2 Flow Rate FiO2 10/04/24 13:00 97.5 70 17 130/72 (91) 98 97.5 10/04/24 08:10 Room Air* 0 21 Intake/Output Intake and Output 10/04/24 07:00 Intake Total 600 ml Balance 600 ml Intake Oral 600 ml # Voids 13 Exam Alert oriented x3 able to ambulate clear breath sounds s1 s2 rrr abdomen soft LE edema with foot ulcer, dim pulse Medications Current Medications Medications Dose Ordered Sig/Rosalind Route Start Time Stop Time Status Last Admin Dose Admin Amlodipine Besylate 5 mg DAILY PO 09/27/24 10:00 10/04/24 10:08 5 MG Enoxaparin Sodium 100 mg Q12H SC 09/27/24 05:00 10/04/24 05:38 100 MG Sodium Chloride 1,000 ml @ 60 mls/hr [id number] IV 09/26/24 21:00 10/03/24 20:06 60 MLS/HR Acetaminophen/ Hydrocodone Bitart 1 tab Q4HP PRN PO 09/26/24 21:00 10/04/24 14:49 1 TAB Metoprolol Tartrate 25 mg BID PO 09/26/24 22:00 10/04/24 10:09 25 MG Aspirin 81 mg DAILY PO 09/28/24 10:00 10/04/24 10:09 81 MG Atorvastatin Calcium 40 mg HS PO 09/27/24 22:00 10/03/24 21:48 40 MG Nystatin 1 applic BID TOP 09/28/24 22:00 10/04/24 10:09 1 APPLIC Cilostazol 100 mg BID PO 09/28/24 22:00 10/04/24 10:07 100 MG Gabapentin 600 mg BID PO 09/29/24 22:00 10/04/24 10:08 600 MG Paroxetine HCl 40 mg DAILY PO 09/29/24 10:00 10/04/24 10:07 40 MG Pantoprazole Sodium 40 mg DAILY PO 09/29/24 10:00 10/04/24 10:07 40 MG Laboratory Results Laboratory Tests 10/02/24 06:11 Urinalysis Test 09/29/24 21:50 Urine Color Straw (Yellow) Urine Clarity Clear (Clear) Urine pH 6.0 (5.0-9.0) Urine Specific [place] 1.006 (1.001-1.035) Urine Protein Negative (Negative) Urine Ketones Negative (Negative) Urine Blood Negative /uL (Negative) Urine Nitrite Negative (Negative) Urine Bilirubin Negative (Negative) Urine Urobilinogen Normal mg/dL (Negative) Urine Leukocyte Esterase Negative /uL (Negative) Urine RBC 1 /hpf (0 - 3) Urine Microscopic WBC /HPF (0-3) Urine Squamous Epithelial Cells Few /hpf (<5) Urine Bacteria None seen /hpf (None Seen) Urine Glucose Normal mg/dL (Normal) Labs and/or images reviewed: Labs reviewed by me, Image(s) reviewed by me Assessment/Plan Assessment/Plan 10/04 patient doing well, out of bed. Tolerating diet. Patient lateral left wrist has erythema from prior IV line access. No systemic symptoms. We will start Ancef empirically. assessment: PAD status post PTCA X 2 TERRY in each leg (on Plavix), current with foot ulcer curshed stents, requiring fempop bypass IV Related cellulitis Hypertension Dyslipidemia TIA Peripheral neuropathy Skin cancer Heavy alcohol use Heavy tobacco use Obesity Plan: vascular consult appreciated asa lipitor smoking cessation, NRT resume home meds wound consult send lipid a1c plan for angio tomorrw mycostatin powder on feet add cilostazol hold plavix for procedure resume home meds cta with runoff completed Ancef for possible cellulitis on left lateral wrist. SP IV access, removed. NPO saturday midnight, preop labs diet cardiac dvt ppx hold possible procedure Plan discussed with: Patient Date of Service: Oct 04, 2024 Billing Provider: JESUS SANON MD Common Visit Codes: [id number] INP/OBS CARE(HIGH) JESUS SANON MD Oct 04, 2024 16:26
[2024-10-04] MEDS: ceFAZolin 1GM/50ML 50 ML IV SCH (21:20)
[2024-10-04] MEDS ORDERED: DOXYCYCLINE 100 MG TAB/CAP PO SCH (22:00)
[2024-10-05] VITALS (8 sets, daily range): BP systolic 97–132; BP diastolic 63–82; PULSE 82–116; RESP 16–20; TEMP 89.5–99; O2SAT 90–97
[2024-10-05] MEDS ORDERED: ONDANSETRON HCL 4 MG/2 ML VIAL ONE (07:06)
[2024-10-05] MEDS ORDERED: LIDOCAINE 1% INJ PF 5ML AMP ONE (07:06)
[2024-10-05] MEDS ORDERED: fentaNYL CITRATE 5 ML ONE (07:06)
[2024-10-05] MEDS ORDERED: fentaNYL CITRATE 100 MCG/2 ML VL ONE (07:06)
[2024-10-05] MEDS ORDERED: MEPERIDINE HCL (25 MG/ML) 1ML VIAL ONE (07:06)
[2024-10-05] MEDS ORDERED: [UNRECOGNIZED DRUG - OTHER] ONE (07:06)
[2024-10-05] MEDS ORDERED: PROPOFOL 10 MG/ML 20 ML IV ONE (07:06)
[2024-10-05] MEDS ORDERED: MIDAZOLAM HCL 2MG/2ML 2ml VIAL (1mg/ml) ONE (07:06)
[2024-10-05] MEDS ORDERED: ROCURONIUM 10MG/ML 10ML VIAL IV ONE (07:06)
[2024-10-05] MEDS ORDERED: LIDOCAINE 2% TOPICAL JELLY 5 ML URJT TOP ONE (07:06)
[2024-10-05] MEDS ORDERED: KETAMINE 50mg/ML 1ml syringe ONE (07:06)
--- NOTE | 2024-10-05 08:10 | POSTOP ---
Post-Operative Note Post-Operative Note Preop Diagnosis Right leg rest pain Postop Diagnosis: Right SFA occlusion at site of distal SFA fractured stent Operation performed Scheduled fem-pop bypass canceled secondary to high fever with tachycardia. Specimen None Anesthesia: Mac Anesthesiologist: cons sedation Surgeon Parag Quiros MD Additional Remarks Patient upon evaluation in the operating room was found to have a rising fever to level of 101.7. Was tachycardic in the 110s. It was decided because of the high possibility of needing a Gortex prosthetic graft that the procedure would be aborted and the underlying infection/sepsis would be treated prior to rescheduling surgery. On evaluation of the left arm had some areas of prior old IV sites which were erythematous with small pustules and were swollen. Patient was awoken and taken to the recovery room in a stable condition. The medical team was made aware of the finding. Date 10/05/24 Time 08:08 PARAG QUIROS Jr., MD Oct 05, 2024 08:10
[2024-10-05] MEDS: IOHEXOL 300 MG/ML 100ML BOTTLE IJ ONE (08:23)
[2024-10-05] MEDS: GELATIN 1 SPONGE SIZE 100 TOP ONE (08:23)
[2024-10-05] MEDS: TETRACAINE 1% INJ 2 ML VIAL IJ ONE (08:23)
[2024-10-05] MEDS: SUCCINYLCHOLINE CHLORIDE 20 MG/ML 10ML VIAL IV ONE (08:24)
[2024-10-05] MEDS: HEPARIN SODIUM (PORCINE) 5000 UNITS/ML 1ML VIAL ONE (08:24)
[2024-10-05] MEDS: LIDOCAINE 1% HCL (LOCAL ANESTH.) INJ 20ML MDV ONE (08:24)
[2024-10-05] MEDS: BUPIVACAINE 0.25% INJ 50ML VIAL ONE (08:24)
[2024-10-05] MEDS: LIDOCAINE 1% (LOCAL ANESTH.) PF 5ml SDV ONE (08:24)
[2024-10-05] MEDS: THROMBIN (BOVINE) 5000 UNIT SOL VIAL ONE (08:25)
[2024-10-05] MEDS: IOHEXOL 350 MG/ML 100ML IJ ONE (08:25)
[2024-10-05] MEDS: ACETAMINOPHEN 325 MG TAB PO ONE (08:38)
[2024-10-05] MEDS: METOCLOPRAMIDE HCL 5MG/ml INJ 2ml VIAL IV ONE (10:18)
[2024-10-05 11:10] LABS: Basophils # (auto) 0 10 ^3/uL (0-0.2); Basophils % (auto) 0.3 % (0.0-2.0); Eosinophils # (auto) 0.2 10 ^3/uL (0-0.8); Eosinophils % (auto) 1.4 % (0.0-7.0); Hematocrit 40.5 % (41.0-53.0); Hemoglobin 13.8 g/dL (13.5-17.5); Lymphocytes # (auto) 1.4 10 ^3/uL (0.4-5.4); Lymphocytes % (auto) 13.2 % (10.0-50.0); Mean Corpuscular Hemoglobin 33.4 pg (28.0-32.0); Mean Corpuscular Hgb Conc. 34.2 g/dL (32.0-36.0); Mean Corpuscular Volume 97.6 fL (80.0-100.0); Monocytes # (auto) 1.5 10 ^3/uL (0-1.3); Monocytes % (auto) 13.5 % (0.0-12.0); Neutrophils # (auto) 7.8 10 ^3/uL (1.6-8.6); Neutrophils % (auto) 71.6 % (37.0-80.0); Nucleated Red Blood Cells % 0.1 %; Platelet Count (auto) 241 10^3/uL (140-450); Red Blood Cells 4.14 10^6/uL (4.5-5.90); Red Cell Distribution Width 12.7 % (11.8-14.3); White Blood Cell 10.9 10^3/uL (4.4-10.8)
[2024-10-05 11:53] LABS: Anion Gap 10 (5-15); Calcium 9.9 mg/dL (8.7-10.4); Carbon Dioxide 21 mmol/L (20-31); Chloride 101 mmol/L (98-107); Potassium 3.8 mmol/L (3.5-5.1)
[2024-10-05 11:59] LABS: BUN/Creatinine Ratio 12.3 (10.0-20.0); Blood Urea Nitrogen 13 mg/dL (9-23)
[2024-10-05 12:09] LABS: Glucose 180 mg/dL (74-106); Sodium 132 mmol/L (136-145)
--- NOTE | 2024-10-05 14:03 | DVHPN2 ---
Assessment/Plan Assessment/Plan Progress note 59 yo M with TIA, HTN, MVP smoker, PAD s/p fem stents, admitted for R leg pain and ulcer seen during rounds, seen by vascular. plan for surgery today, however patient had a fever and tachycardic, decided to postpone. empiric coverage with kelfex Physical exam Alert oriented x3 able to ambulate clear breath sounds s1 s2 rrr abdomen soft LE edema with foot ulcer, dim pulse labs ekg imaging reviewed PAD with foot ulcer s/p fem stents curshed stents, requiring fempop bypass HTN Hx of TIA smoker vascular consult appreciated asa lipitor smoking cessation, NRT resume home meds wound consult send lipid a1c plan for angio tomorrw mycostatin powder on feet add cilostazol hold plavix for procedure resume home meds cta with runoff NPO saturday midnight, preop lasb c/w keflex send blood cult lactate diet cardiac dvt ppx lovenox discussed smoking cessation 10 minutes Plan discussed with: Patient Date of Service: Oct 05, 2024 Billing Provider: VALENTINA CALIXTO MD Common Visit Codes: [id number] INP/OBS CARE(HIGH) VALENTINA CALIXTO MD Oct 05, 2024 14:03
--- NOTE | 2024-10-05 14:10 | DVHPN2 ---
Assessment/Plan Assessment/Plan Progress note 59 yo M with TIA, HTN, MVP smoker, PAD s/p fem stents, admitted for R leg pain and ulcer seen during rounds, seen by vascular. plan for surgery today, however patient had a fever and tachycardic, decided to postpone. empiric coverage with kelfex Physical exam Alert oriented x3 able to ambulate clear breath sounds s1 s2 rrr abdomen soft LE edema with foot ulcer, dim pulse labs ekg imaging reviewed PAD with foot ulcer s/p fem stents curshed stents, requiring fempop bypass HTN Hx of TIA smoker cellulitis? vascular consult appreciated asa lipitor smoking cessation, NRT resume home meds wound consult send lipid a1c plan for angio tomorrw mycostatin powder on feet add cilostazol hold plavix for procedure resume home meds cta with runoff NPO saturday midnight, preop lasb c/w keflex send blood cult lactate diet cardiac dvt ppx lovenox discussed smoking cessation 10 minutes Plan discussed with: Patient My Orders Orders - VALENTINA CALIXTO MD Procedure Category Date Status Time Basic Metabolic Panel LAB 10/06/24 Verified 04:00 Complete Blood Count LAB 10/06/24 Verified 04:00 Lactic Acid W/ Reflex LAB 10/05/24 Logged Order 14:03 Blood Culture GENTRY 10/05/24 Logged 14:03 Date of Service: Oct 05, 2024 Billing Provider: VALENTINA CALIXTO MD Common Visit Codes: [id number] INP/OBS CARE(HIGH) Secondary Visit Codes: [id number] CHNG SMOKING 3-10m VALENTINA CALIXTO MD Oct 05, 2024 14:10
[2024-10-06 01:00] VITALS: BP 142/81; PULSE 91; RESP 18; TEMP 98.5; O2SAT 95
[2024-10-06 05:00] VITALS: BP 108/44; PULSE 80; RESP 17; TEMP 98.3; O2SAT 94
[2024-10-06 06:53] LABS: Basophils # (auto) 0 10 ^3/uL (0-0.2); Basophils % (auto) 0.3 % (0.0-2.0); Eosinophils # (auto) 0.3 10 ^3/uL (0-0.8); Eosinophils % (auto) 2.9 % (0.0-7.0); Hematocrit 36.5 % (41.0-53.0); Hemoglobin 12.5 g/dL (13.5-17.5); Lymphocytes # (auto) 1.7 10 ^3/uL (0.4-5.4); Lymphocytes % (auto) 19.7 % (10.0-50.0); Mean Corpuscular Hemoglobin 33.4 pg (28.0-32.0); Mean Corpuscular Hgb Conc. 34.3 g/dL (32.0-36.0); Mean Corpuscular Volume 97.3 fL (80.0-100.0); Monocytes # (auto) 1.5 10 ^3/uL (0-1.3); Neutrophils # (auto) 5.3 10 ^3/uL (1.6-8.6); Neutrophils % (auto) 60.1 % (37.0-80.0); Platelet Count (auto) 240 10^3/uL (140-450); Red Blood Cells 3.75 10^6/uL (4.5-5.90); Red Cell Distribution Width 12.9 % (11.8-14.3); White Blood Cell 8.8 10^3/uL (4.4-10.8)
[2024-10-06 07:05] LABS: Chloride 102 mmol/L (98-107); Potassium 3.8 mmol/L (3.5-5.1)
[2024-10-06 07:06] LABS: Anion Gap 6 (5-15); Calcium 9.6 mg/dL (8.7-10.4); Carbon Dioxide 25 mmol/L (20-31)
[2024-10-06 07:11] LABS: BUN/Creatinine Ratio 13.2 (10.0-20.0); Blood Urea Nitrogen 12 mg/dL (9-23)
[2024-10-06 07:12] LABS: Glucose 110 mg/dL (74-106); Sodium 133 mmol/L (136-145)
[2024-10-06 08:00] VITALS: PULSE 79; PULSE 94; RESP 18; O2SAT 94
[2024-10-06] MEDS ORDERED: CILO100T3 PO (09:09)
[2024-10-06] MEDS ORDERED: DOXY100C79 PO (09:09)
[2024-10-06] MEDS ORDERED: AML5T PO (09:09)
[2024-10-06] MEDS ORDERED: APIX5TAB PO (09:09)
[2024-10-06] MEDS ORDERED: MET25T PO (09:09)
[2024-10-06 11:42] VITALS: BP 111/63; PULSE 84; RESP 18; TEMP 98.3; O2SAT 94
--- NOTE | 2024-10-06 12:27 | DVHDS2 ---
Discharge Summary Date of Admission Sep 26, 2024 at 21:26 Date of Discharge: Oct 06, 2024 Labs/Diagnostic Data: Laboratory Results Test 10/06/24 06:08 10/05/24 14:50 10/04/24 12:00 10/02/24 06:11 White Blood Count 8.8 10^3/uL (4.4-10.8) Red Blood Count 3.75 10^6/uL (4.5-5.90) Hemoglobin 12.5 g/dL (13.5-17.5) Hematocrit 36.5 % (41.0-53.0) Mean Corpuscular Volume 97.3 fL (80.0-100.0) Mean Corpuscular Hemoglobin 33.4 pg (28.0-32.0) Mean Corpuscular Hemoglobin Concent 34.3 g/dL (32.0-36.0) Red Cell Distribution Width 12.9 % (11.8-14.3) Platelet Count 240 10^3/uL (140-450) Mean Platelet Volume 7.3 fL (6.9-10.8) Neutrophils (%) (Auto) 60.1 % (37.0-80.0) Lymphocytes (%) (Auto) 19.7 % (10.0-50.0) Monocytes (%) (Auto) 17.0 % (0.0-12.0) Eosinophils (%) (Auto) 2.9 % (0.0-7.0) Basophils (%) (Auto) 0.3 % (0.0-2.0) Neutrophils # (Auto) 5.3 10 ^3/uL (1.6-8.6) Lymphocytes # (Auto) 1.7 10 ^3/uL (0.4-5.4) Monocytes # (Auto) 1.5 10 ^3/uL (0-1.3) Eosinophils # (Auto) 0.3 10 ^3/uL (0-0.8) Basophils # (Auto) 0 10 ^3/uL (0-0.2) Nucleated Red Blood Cells 0.0 % Sodium Level 133 mmol/L (136-145) Potassium Level 3.8 mmol/L (3.5-5.1) Chloride Level 102 mmol/L (98-107) Carbon Dioxide Level 25 mmol/L (20-31) Anion Gap 6 (5-15) Blood Urea Nitrogen 12 mg/dL (9-23) Creatinine 0.91 mg/dL (0.700-1.30) Glomerular Filtration Rate Calc 98 mL/min (>90) BUN/Creatinine Ratio 13.2 (10.0-20.0) Serum Glucose 110 mg/dL (74-106) Calcium Level 9.6 mg/dL (8.7-10.4) Lactic Acid Level 1.6 mmol/L (0.4-2.0) Influenza Type A Antigen Negative (Negative) Influenza Type B Antigen Negative (Negative) SARS-CoV-2 Antigen (Rapid) Negative (NEGATIVE) Phosphorus Level 3.6 mg/dL (2.4-5.1) Magnesium Level 1.8 mg/dL (1.6-2.6) Total Bilirubin 0.4 mg/dL (0.2-1.0) Aspartate Amino Transferase (AST) 20 U/L (13-40) Alanine Aminotransferase (ALT) 33 U/L (7-40) Alkaline Phosphatase 78 U/L (46-116) Troponin I High Sensitivity 4 ng/L (</=54) B-Type Natriuretic Peptide 10.26 pg/mL (0-100) Total Protein 7.1 g/dL (5.7-8.2) Albumin 5.0 g/dL (3.2-4.8) Test 09/30/24 06:11 09/29/24 21:50 09/27/24 07:36 09/27/24 03:37 Prothrombin Time 10.8 sec (9.3-11.8) Prothrombin Time INR 1.02 (0.9-1.15) Activated Partial Thromboplast Time 33.5 SEC (24.5-34.5) Urine Color Straw (Yellow) Urine Clarity Clear (Clear) Urine pH 6.0 (5.0-9.0) Urine Specific [place] 1.006 (1.001-1.035) Urine Protein Negative (Negative) Urine Ketones Negative (Negative) Urine Blood Negative /uL (Negative) Urine Nitrite Negative (Negative) Urine Bilirubin Negative (Negative) Urine Urobilinogen Normal mg/dL (Negative) Urine Leukocyte Esterase Negative /uL (Negative) Urine RBC 1 /hpf (0 - 3) Urine Microscopic WBC /HPF (0-3) Urine Squamous Epithelial Cells Few /hpf (<5) Urine Bacteria None seen /hpf (None Seen) Urine Glucose Normal mg/dL (Normal) POC Glucose 109 mg/dl (70-106) Hemoglobin A1c 5.8 % A1C (<5.7) Triglycerides Level 153 mg/dL (< 150) Cholesterol Level 145 mg/dL (< 200) LDL Cholesterol 83 mg/dL (< 100) HDL Cholesterol 47 mg/dL (40-59) Other Laboratory Tests 10/06/24 06:08 Brief Hx & Hospital Course: 59 yo M with PAD admitted for leg pain. Patient had prior stents, on DAPT. CTA showed significant stenosis, vascular surgery consulted, patient went for angiography which showed Right SFA occlusion at site of distal SFA fractured stent. Decision for planning to undergo fempop bypass. On op day, patient had cellulitis and spiked a fever, which postponed the surgery. Discussed with vascular, patient to complete oral abx for 10 days for cellulitis before seen electively for bypass. Patient is still smoking, multiple counseling done. Condition at Discharge: Good Final Diagnosis/Problems List Right SFA occlusion at site of distal SFA fractured stent PAD with foot ulcer s/p fem stents HTN Hx of TIA smoker LUE cellulitis Discharge Disposition: Home Discharge Instruct/Medications Diet: Consistent carbohydrate, Cardiac 2g Na,low cholest Activity: No Restrictions, As Tolerated Follow Up/Referral: Vascular with dr Quiros Medications: plavix lipitor metoporolol amlodipine 39 Discharge Statement: "Patient was advised to return to the ER or call 911 if any headaches, dizziness, shortness of breath, chest pain, abdominal pain, bleeding, fevers, or worsening of medical condition. Patient was counseled about treatment plan, medications, possible side effects, patientverbalized understanding. All questions were answered to the best of my ability. 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
== END 2024-10-06 12:45 | disposition home or self-care (01) | DRG 300 ==
LOC: ER 14:21 → TELE 21:26 → TELE-EAST 09-28 13:00 → OVERFLOW 09-29 15:15 → EAST 09-29 15:23 → OVERFLOW 09-30 13:01 → TELE-EAST 09-30 13:11
PROVIDERS: ADMIT Student in an Organized Health Care Education/Training Program; ATTEND Student in an Organized Health Care Education/Training Program
PROC: B41FYZZ Fluoroscopy of Right Lower Extremity Arteries using Other Contrast (ICD-10-PCS; principal; 2024-10-01)
PROC: 0SJ9XZZ Inspection of Right Hip Joint, External Approach (ICD-10-PCS; 2024-10-05)
DX: I70.211 Atherosclerosis of native arteries of extremities with intermittent claudication, right leg (principal); I45.2 Bifascicular block; L03.114 Cellulitis of left upper limb; L97.519 Non-pressure chronic ulcer of other part of right foot with unspecified severity; E66.9 Obesity, unspecified; E78.5 Hyperlipidemia, unspecified; G62.9 Polyneuropathy, unspecified; Z20.822 Contact with and (suspected) exposure to COVID-19; F41.9 Anxiety disorder, unspecified; I34.1 Nonrheumatic mitral (valve) prolapse; F17.210 Nicotine dependence, cigarettes, uncomplicated; K21.9 Gastro-esophageal reflux disease without esophagitis; I10 Essential (primary) hypertension; Z85.828 Personal history of other malignant neoplasm of skin; Z88.1 Allergy status to other antibiotic agents; Z82.49 Family history of ischemic heart disease and other diseases of the circulatory system; Z98.61 Coronary angioplasty status; Z86.73 Personal history of transient ischemic attack (TIA), and cerebral infarction without residual deficits; Z68.25 Body mass index [BMI] 25.0-25.9, adult; Z71.6 Tobacco abuse counseling
CPT/HCPCS: 36415; 71045; 75635; 75710; 80048; 80053; 80061; 81001; 82962; 83036; 83605; 83735; 83880; 84100; 84484; 85025; 85610; 85730; 86850; 86900; 86901; 87040; 87426; 87804; 93005; 93306; 93926; 99152; 99291; C1894; G0378; J0330; J2003; J2250; J2405; J2704; J3490; Q9967